=== PATIENT | male | born 1960 | race Caucasian/White ===

== ENCOUNTER 2024-03-18 08:39 | Inpatient (IN) | payer MEDICARE, MEDICAID, SELFPAY ==
[2024-03-18] VITALS (69 sets, daily range): BP systolic 98–147; BP diastolic 17–115; PULSE 63–169; RESP 12–24; TEMP 36.4–37.3; O2SAT 90–100
--- NOTE | 2024-03-18 08:30 | RT.EKG_ITS ---
APPROVED REPORT Exam: Resting ECG Reason for Exam: Dyspnea Patient Location: E HR:68 bpm ECG Measurements Heart Rate 68 AXIS DC 158 P 38 QRSd 148 QRS -48 QT 498 T 29 QTc 531 Conclusion Sinus rhythm...normal P axis, V-rate 60- 99 Right bundle branch block...QRSd>120, terminal axis(90,270)
--- NOTE | 2024-03-18 09:30 | NUR.NOTE ---
Nursing Note: Patient found to have red painful areas to buttocks. Patient's tip of penis was red, painful with a discharge. Patient has numerous red spots on abd and legs
--- NOTE | 2024-03-18 10:23 | ED.GENADUL_ITS ---
Discharge Plan Disposition Patient Disposition: Admit to [facility] Condition: Serious Discharge Details Chief Complaint: GenMedical Clinical Impression: AURELIA (acute kidney injury), Abdominal ascites, Anemia, Hypoxia Primary Care Provider: Darcie Mckeon ED Provider: Ulysses Emery Home Meds and New Rx's Prescriptions: No Action acetaminophen 325 mg capsule 650 mg PO Q8H PRN PRN aspirin [Adult Low Dose Aspirin] 81 mg tablet,delayed release (DR/EC) 81 mg PO DAILY bupropion HCl 150 mg tablet sustained-release 12 hr 150 mg PO DAILY lactulose [Enulose] 10 gram/15 mL solution 10 g PO BID glucagon HCl [Glucagon (HCl) Emergency Kit] 1 mg recon soln 1 mg IM ONCE PRN Rx Instructions: give if glucose under 70 melatonin 3 mg capsule 3 mg PO QHS ondansetron HCl 4 mg tablet 4 mg PO QD-BID PRN propranolol 60 mg capsule,extended release 24 hr 60 mg PO DAILY pantoprazole [Protonix] 40 mg tablet,delayed release (DR/EC) 40 mg PO BID albuterol sulfate [Ventolin HFA] 90 mcg/actuation HFA aerosol inhaler 2 inh inhalation Q4H PRN rifaximin 550 mg tablet 550 mg PO BID rosuvastatin 40 mg tablet 40 mg PO DAILY spironolactone [Aldactone] 50 mg tablet 50 mg PO DAILY torsemide 20 mg tablet 20 mg PO DAILY metformin 500 MG tablet 500 mg PO DAILY enalapril maleate 20 MG tablet 40 mg PO DAILY trazodone 100 MG tablet 100 mg PO DAILY atorvastatin [Lipitor] 20 MG tablet 20 mg PO DAILY lamotrigine [Lamictal] 25 MG tablet 75 mg PO DAILY paroxetine HCl 40 MG tablet 40 mg PO DAILY cyclobenzaprine 10 MG tablet 10 mg PO TID PRNQty: 12 0RF HPI General Mode of arrival: EMS . Date/Time Provider Initiated Documentation: 03/18/24 08:56 . Information obtained by: patient . HPI Narrative: 64-year-old male with multiple medical problems, sent from long-term with concern that he was having shortness of breath. Patient notes he did not request to be sent to the hospital. He does note he has had some shortness of breath this morning. He states he does get short of breath sometimes while sleeping and having a dream. He states shortness of breath improved when he woke up. Patient does note he has been refusing to take his lactulose because of diarrhea. He notes the rehab staff are aggressive with him when he has diarrhea. Patient has no chest pain or shortness of breath at this time. He does note significant abdominal distention and states that he has had paracentesis performed probably about a month ago. He is unsure if he is scheduled for repeat paracentesis. History limited secondary to poor historian. Related Data Home Medications ?Medication ?Instructions ?Recorded ?Confirmed atorvastatin 20 mg tablet (Lipitor) 20 mg PO DAILY 09/09/17 03/18/24 cyclobenzaprine 10 mg tablet 10 mg PO TID PRN #12 tabs 09/09/17 03/18/24 enalapril maleate 20 mg tablet 40 mg PO DAILY 09/09/17 03/18/24 lamotrigine 25 mg tablet (Lamictal) 75 mg PO DAILY 09/09/17 03/18/24 metformin 500 mg tablet 500 mg PO DAILY 09/09/17 03/18/24 paroxetine HCl 40 mg tablet 40 mg PO DAILY 09/09/17 03/18/24 trazodone 100 mg tablet 100 mg PO DAILY 09/09/17 03/18/24 acetaminophen 325 mg capsule 650 mg PO Q8H PRN PRN 03/18/24 03/18/24 albuterol sulfate 90 mcg/actuation 2 inh inhalation Q4H PRN 03/18/24 03/18/24 aerosol inhaler (Ventolin HFA) aspirin 81 mg tablet,delayed 81 mg PO DAILY 03/18/24 03/18/24 release (Adult Low Dose Aspirin) bupropion HCl 150 mg tablet,12 hr 150 mg PO DAILY 03/18/24 03/18/24 sustained-release glucagon HCl 1 mg solution for 1 mg IM ONCE PRN 03/18/24 03/18/24 injection (Glucagon (HCl) Emergency Kit) lactulose 10 gram/15 mL oral 10 g PO BID 03/18/24 03/18/24 solution (Enulose) melatonin 3 mg capsule 3 mg PO QHS 03/18/24 03/18/24 ondansetron HCl 4 mg tablet 4 mg PO QD-BID PRN 03/18/24 03/18/24 pantoprazole 40 mg tablet,delayed 40 mg PO BID 03/18/24 03/18/24 release (Protonix) propranolol 60 mg capsule,24 60 mg PO DAILY 03/18/24 03/18/24 hr,extended release rifaximin 550 mg tablet 550 mg PO BID 03/18/24 03/18/24 rosuvastatin 40 mg tablet 40 mg PO DAILY 03/18/24 03/18/24 spironolactone 50 mg tablet 50 mg PO DAILY 03/18/24 03/18/24 (Aldactone) torsemide 20 mg tablet 20 mg PO DAILY 03/18/24 03/18/24 Previous Rx's ?Medication ?Instructions ?Recorded cyclobenzaprine 10 mg tablet 10 mg PO TID PRN #12 tabs 09/09/17 Allergies Allergy/AdvReac Type Severity Reaction Status Date / Time dust,perfume,smoke Allergy Mild Other (See Uncoded 03/18/24 08:53 Comment) General Stated Complaint: GenMedical ARLYN: 3 Review of Systems All systems reviewed & are unremarkable except as noted in HPI and below Gastrointestinal Gastrointestinal: Reports abdominal pain and Denies vomiting Exam Const General: cooperative [facility] Head: normocephalic and atraumatic Mouth: moist mucous membranes Eyes Conjunctivae: normal conjunctivae Sclera: normal sclerae Resp Auscultation: clear to auscultation bilaterally, no rales, no rhonchi and no wheezes Cardio Rate: regular rate and not tachycardic Rhythm: regular rhythm GI Inspection: distended Palpation: not firm, no guarding, no masses, not rigid and nontender Skin General skin exam: no rashes or lesions noted Neuro General: patient alert, patient awake and tone normal Extrem General: edema Laterality: bilateral (Pitting) Course Vital Signs Vital signs: Vital Signs Temperature 37.0 C 03/18/24 08:39 Pulse 69 03/18/24 08:39 Respiratory Rate 20 03/18/24 08:39 Blood Pressure 113/37 L 03/18/24 08:39 Pulse Oximetry 100 03/18/24 08:39 Temperature 37.0 C 03/18/24 08:53 Temperature Source Oral 03/18/24 08:53 Pulse 69 03/18/24 08:53 Respiratory Rate 22 03/18/24 08:54 Respiratory Effort Labored 03/18/24 08:54 Respiratory Depth Normal 03/18/24 08:54 Respiratory Pattern Normal 03/18/24 08:54 Blood Pressure 113/37 L 03/18/24 08:53 Blood Pressure Position Sitting 03/18/24 08:53 Pulse Oximetry 100 03/18/24 08:53 Oxygen Delivery Method Room Air 03/18/24 08:53 Oxygen Flow Rate 0 03/18/24 08:53 Procedures Paracentesis Time Out Performed: Yes Indication: Ascites Procedure: therapeutic paracentesis Location: LLQ Local Anesthetic: Lidocaine 1% Amount of anesthesia used (mL): 10 Bedside Ultrasound Used: yes, real-time guidance Preparation: sterile prep and drape Amount of Fluid Obtained: 4,500 Fluid: clear and Sent to Lab for Analysis Post Procedure Exam: awake, alert, normal BP and normal HR Patient Tolerated Procedure: well Complications: other (continued peritoneal fluid leak) Medical Decision Making 1030? 64-year-old male with multiple medical problems including history of cirrhosis of the liver, coronary artery disease, Chatman type II, diabetes, here with concern from long-term staff for shortness of breath. Patient does note he had some shortness of breath that is since resolved. He is more concerned about his abdominal distention. Patient does have distended abdomen. Nontender. He is hemodynamically stable and saturating well on room air. When I lying flat his breathing does seem labored and his oxygen saturation decreases to upper 80s. Nasal cannula oxygen was applied. I am concerned for abdominal ascites related to his liver disease and contributing to respiratory issues while lying flat. I did obtain and reviewed outside hospital records from [facility] emergency department visit 01/13/2024. Patient was noted to have decompensated cirrhosis and acute kidney injury. Patient had paracentesis performed at that time. Plan for therapeutic paracentesis. 1118 --initial labs reviewed: Creatinine is significantly elevated at 5.0. In reviewing outside hospital records from [facility], patient did have a creatinine of 3.47 in January with baseline noted to be 2.31. Anion gap acidosis noted. -- Additional labs reviewed: Patient is anemic. Unclear of baseline. Normal platelets and INR. Leukocytosis noted. LFTs elevated as is lipase raising concern for potential pancreatitis. I do not suspect SBP at this time as patient is afebrile and does not have significant abdominal pain. Plan to send peritoneal fluid for fluid analysis and culture. 1345 --paracentesis was performed with ultrasound guidance. 4.5 L of yellow clear fluid removed. While fluid was continuing to flow briskly, I was concerned with drop in patient's blood pressure to systolic around 100 and decision made to not remove additional fluid. Patient did have some continued peritoneal leak post procedure. Sterile dressing applied. Plan for hospitalization given AURELIA, anemia, and potential for significant fluid shift post paracentesis. Patient is now taking oral fluid. 1412 --I spoke with Dr. Gonzalez, on-call general surgeon, alerted him that paracentesis has been performed and that patient did continue to have some peritoneal fluid leak post procedurally. I spoke with the on-call hospitalist, Dr. Perez, discussed ED presentation course, he will admit the patient. Lab Data Lab results reviewed: Yes I reviewed the patient's lab results. Labs: 03/18/24 13:25 Peritoneal Body Fluid Culture - Pending 03/18/24 13:25 Peritoneal Gram Stain - Pending Laboratory Tests Range/Units 03/18/24 03/18/24 03/18/24 09:51 10:30 10:30 WBC (4.4-10.8) 10^3/uL RBC (4.36-5.78) 10^6/uL Hgb (13.5-17.5) g/dL Hct (40.0-50.0) % MCV (80-95) fL MCH (27.0-33.0) pg MCHC (32.0-36.0) % RDW (11.8-14.1) % Plt Count (130-400) 10^3/uL MPV (8.0-11.0) fL Immature Gran % % Neutrophils % % Lymphocytes % % Monocytes % % Eosinophils % % Basophils % % Nucleated RBC % (0.0-0.3) % Absolute Neutrophils (1.2-6.7) 10^3/uL Absolute Lymphocytes (1.2-3.4) 10^3/uL Absolute Monocytes (0.1-0.8) 10^3/uL Absolute Eosinophils (0.0-0.7) 10^3/uL Absolute Basophils (0.0-0.2) 10^3/uL Poikilocytosis Basophilic Stippling Anisocytosis PT Cancelled INR Cancelled Sodium (136-145) mmol/L 139 Potassium (3.5-5.1) mmol/L 5.1 Chloride (98-107) mmol/L 107 Carbon Dioxide (21.0-32.0) mmol/L 15.9 L Anion Gap (3-11) mmol/L 16.1 H BUN (7-18) mg/dL 92 H* Creatinine (0.70-1.30) mg/dL 5.0 H* Est GFR (CKD-EPI 2020) (mL/min/1.73m2) 12.18 Glucose (74-106) mg/dL 75 Calcium (8.5-10.1) mg/dL 8.5 Total Bilirubin (0.2-1.0) mg/dL 1.29 H AST (15-37) U/L 148 H ALT (16-63) U/L 97 H Alkaline Phosphatase (46-116) U/L 204 H Total Protein (6.4-8.2) g/dL 6.0 L Albumin (3.4-5.0) g/dL 2.4 L Lipase Cancelled 244 H Range/Units 03/18/24 11:13 WBC (4.4-10.8) 10^3/uL 14.66 H RBC (4.36-5.78) 10^6/uL 2.51 L Hgb (13.5-17.5) g/dL 7.2 L Hct (40.0-50.0) % 22.1 L MCV (80-95) fL 88 MCH (27.0-33.0) pg 28.7 MCHC (32.0-36.0) % 32.6 RDW (11.8-14.1) % 21.6 H Plt Count (130-400) 10^3/uL 162 MPV (8.0-11.0) fL 10.9 Immature Gran % % 0.6 Neutrophils % % 77.7 Lymphocytes % % 11.8 Monocytes % % 8.2 Eosinophils % % 1.4 Basophils % % 0.3 Nucleated RBC % (0.0-0.3) % 0.0 Absolute Neutrophils (1.2-6.7) 10^3/uL 11.39 H Absolute Lymphocytes (1.2-3.4) 10^3/uL 1.73 Absolute Monocytes (0.1-0.8) 10^3/uL 1.20 H Absolute Eosinophils (0.0-0.7) 10^3/uL 0.21 Absolute Basophils (0.0-0.2) 10^3/uL 0.04 Poikilocytosis 1+ Basophilic Stippling Present Anisocytosis 3+ PT 12.7 H INR 1.3 H Sodium (136-145) mmol/L Potassium (3.5-5.1) mmol/L Chloride (98-107) mmol/L Carbon Dioxide (21.0-32.0) mmol/L Anion Gap (3-11) mmol/L BUN (7-18) mg/dL Creatinine (0.70-1.30) mg/dL Est GFR (CKD-EPI 2020) (mL/min/1.73m2) Glucose (74-106) mg/dL Calcium (8.5-10.1) mg/dL Total Bilirubin (0.2-1.0) mg/dL AST (15-37) U/L ALT (16-63) U/L Alkaline Phosphatase (46-116) U/L Total Protein (6.4-8.2) g/dL Albumin (3.4-5.0) g/dL Lipase Quality:[facility] Health Related Social Needs: No Data to Display PFSH All Active Problems (Updated 03/18/24 @ 14:17 by Ulysses Emery MD) Hypoxia (Acute) Anemia (Chronic) Abdominal ascites (Acute) AURELIA (acute kidney injury) (Acute) Social History Smoking/Tobacco Use Status: Never Smoking risk assessment performed?: Yes Alcohol Intake: former Drug use: Never Substance use type: does not use Do you feel safe in your relationship?: Yes
[2024-03-18 10:56] LABS: ALT 97 U/L (16-63); AST 148 U/L (15-37); Albumin 2.4 g/dL (3.4-5.0); Alkaline Phosphatase 204 U/L (46-116); Anion Gap 16.1 mmol/L (3-11); Bilirubin, Total 1.29 mg/dL (0.2-1.0); CO2 15.9 mmol/L (21.0-32.0); Chloride 107 mmol/L (98-107); Estimated GFR 12.18 (mL/min/1.73m2); Glucose 75 mg/dL (74-106); Lipase 244 U/L (16-77); Potassium 5.1 mmol/L (3.5-5.1); Sodium 139 mmol/L (136-145)
[2024-03-18 10:58] LABS: BUN 92 mg/dL (7-18)
[2024-03-18 11:11] LABS: Calcium 8.5 mg/dL (8.5-10.1)
[2024-03-18 11:21] LABS: Abs Immature Grans 0.09 10^3/uL (0.0-0.06); Absolute Basophil Count 0.04 10^3/uL (0.0-0.2); Absolute Eosinophil Count 0.21 10^3/uL (0.0-0.7); Absolute Lymphocyte Count 1.73 10^3/uL (1.2-3.4); Absolute Neutrophil Count 11.39 10^3/uL (1.2-6.7); Basophils % 0.3 %; Eosinophils % 1.4 %; HCT 22.1 % (40.0-50.0); HGB 7.2 g/dL (13.5-17.5); Immature Grans % 0.6 %; Lymphocytes % 11.8 %; MCH 28.7 pg (27.0-33.0); MCHC 32.6 % (32.0-36.0); MCV 88 fL (80-95); MPV 10.9 fL (8.0-11.0); Monocytes % 8.2 %; Neutrophils % 77.7 %; Platelet Count 162 10^3/uL (130-400); RBC 2.51 10^6/uL (4.36-5.78); RDW 21.6 % (11.8-14.1); RDW-SD 69.9 fL; WBC 14.66 10^3/uL (4.4-10.8)
[2024-03-18 11:31] LABS: INR 1.3 (0.9-1.1); Prothrombin Time 12.7 sec (9.1-11.1)
[2024-03-18 11:41] LABS: Diff Comment RBC Morph Reviewed
[2024-03-18 11:42] LABS: Anisocytosis 3+; Basophilic Stippling Present
[2024-03-18 11:44] LABS: Poikilocytes 1+
--- NOTE | 2024-03-18 12:08 | DI.RAD_ITS ---
Exam(s) XR KNEE RT 4V AP,LAT,CARMEN,PAT EXAM: XR KNEE RT 4V AP,LAT,CARMEN,PAT CLINICAL HISTORY: fall, pain. TECHNIQUE: 2D digital imaging was performed. Three views. COMPARISON: No exams were available for comparison FINDINGS: BONES: No acute fracture is present. No bony destructive lesion is seen. JOINTS: The knee is normally aligned. No joint effusion is seen. SOFT TISSUE: Normal. IMPRESSION: Unremarkable radiographs of the right knee. DATA REPOSITORY: RADIATION DOSE DELIVERED:
--- NOTE | 2024-03-18 14:03 | W.SURGCON ---
Date of service: 03/18/24 Time of Service: 14:04 Assessment and Plan Assessment and plan (1) Abdominal ascites: Status: Acute Assessment and plan: Mr. Duran has quite advanced liver disease, with a MELD score of 24, and a Diony class B. At the current time I agree that spontaneous bacterial peritonitis is unlikely. Although all of the labs for the ascites are not yet resulted, the white blood cell count is only 94, and he does not really have any other classic symptoms of SBP. Regardless, he is kidney injury is quite concerning with regards to his overall prognosis given the severity of his cirrhosis. For now, I think simple dressings over the paracentesis site are his best option. If he continues to drain through sterile bandages, then I would apply a ostomy device to capture the effluent. Certainly, we could perform another paracentesis to try to relieve some of the underlying volume, but until the underlying causes of ascites are better addressed, and I do not think there is much advantage to ongoing paracentesis unless he develops significant symptoms. History of Present Illness History of Present Illness Chief Complaint: Ascites Narrative: Mr. Duran is 64 years old. He was brought to the hospital from the [facility] by EMS for reported shortness of breath. Currently, the patient denies any shortness of breath, although he does a bit to some increasing dyspnea over the past few weeks. His past medical history is significant for cirrhosis. It sounds like nonalcoholic steatohepatitis is probably the source of his cirrhosis. He cannot recall exact details of his liver disease, but says he has been accumulating of ascites over the course of the past year or so. He tells me he is undergone paracentesis 1 other time prior to this. That was at [facility]. He tells me it was in the emergency department. He says he felt a little bit better after the procedure was done. Other significant history includes his noncompliance with lactulose over the past few days because of the diarrhea associated with that. He underwent paracentesis in the emergency department, and about 4-1/2 L of ascites were drained off. He says he feels a little bit better after that. There has been some a drainage of ascites through the access site, but it seems to be improving. Other past medical history includes diabetes and high cholesterol. It sounds like he has had hypertension in the past, but some of his antihypertensives have been discontinued. Review of Systems Constitutional Constitutional: Reports fatigue, Reports lethargy, Reports malaise and Reports weakness Eyes Eyes: Reports system reviewed and no additional complaints, except as documented ENT Ears, Nose, Mouth, and Throat: Reports system reviewed and no additional complaints, except as documented Cardiovascular Cardiovascular: Denies chest pain, Reports leg edema and Reports dyspnea Respiratory Respiratory: Denies chest congestion, Denies cough and Reports dyspnea Gastrointestinal Gastrointestinal: Reports diarrhea (Secondary to lactulose) Musculoskeletal Musculoskeletal: Reports abnormal gait and Reports muscle weakness Integumentary/Breasts Skin/Breast: Reports unusual bruising Neurologic Neurologic: Reports abnormal gait, Reports memory loss and Reports weakness Psychiatric Psychiatric: Reports depression and Reports memory loss Endocrine Endocrine: Reports fatigue PFSH All Active Problems (Updated 03/18/24 @ 14:17 by Ulysses Emery MD) Hypoxia (Acute) Anemia (Chronic) Abdominal ascites (Acute) AURELIA (acute kidney injury) (Acute) Social History Smoking/Tobacco Use Status: Never Smoking risk assessment performed?: Yes Alcohol Intake: former Drug use: Never Substance use type: does not use Do you feel safe in your relationship?: Yes Exam Const General: cooperative and comfortable Orientation: awake and oriented x3 HENMT Head: normal to inspection Eyes Sclera: scleral abnormality (Scleral icterus) bilaterally Neck Neck: normal visual inspection, full ROM and no lymphadenopathy Chest Chest: normal inspection of the chest Resp Effort & Inspection: normal respiratory effort and decreased respiratory effort Cardio Rate: regular rate Rhythm: regular rhythm Heart Sounds: S1 normal and S2 normal GI Inspection: distended Palpation: hernia (Umbilical) and ascites (massive) Skin Other: Mild jaundiced Extrem Right lower extremity: edema; no cyanosis Left lower extremity: edema; no cyanosis Results Last Vital Signs Temp 98.6 F 03/18/24 08:53 Pulse 63 03/18/24 13:31 Resp 16 03/18/24 13:31 BP 129/59 L 03/18/24 13:31 Pulse Ox 100 03/18/24 13:16 Labs 03/18/24 11:13 03/18/24 10:30 Labs: Laboratory Results - last 24 hr 03/18/24 03/18/24 03/18/24 09:51 10:30 10:30 WBC RBC Hgb Hct MCV MCH MCHC RDW Plt Count MPV Immature Gran % Neutrophils % Lymphocytes % Monocytes % Eosinophils % Basophils % Nucleated RBC % Absolute Neutrophils Absolute Lymphocytes Absolute Monocytes Absolute Eosinophils Absolute Basophils Poikilocytosis Basophilic Stippling Anisocytosis PT Cancelled INR Cancelled Sodium 139 Potassium 5.1 Chloride 107 Carbon Dioxide 15.9 L Anion Gap 16.1 H BUN 92 H* Creatinine 5.0 H* Est GFR (CKD-EPI 2020) 12.18 Glucose 75 Calcium 8.5 Total Bilirubin 1.29 H AST 148 H ALT 97 H Alkaline Phosphatase 204 H Total Protein 6.0 L Albumin 2.4 L Lipase Cancelled 244 H 03/18/24 11:13 WBC 14.66 H RBC 2.51 L Hgb 7.2 L Hct 22.1 L MCV 88 MCH 28.7 MCHC 32.6 RDW 21.6 H Plt Count 162 MPV 10.9 Immature Gran % 0.6 Neutrophils % 77.7 Lymphocytes % 11.8 Monocytes % 8.2 Eosinophils % 1.4 Basophils % 0.3 Nucleated RBC % 0.0 Absolute Neutrophils 11.39 H Absolute Lymphocytes 1.73 Absolute Monocytes 1.20 H Absolute Eosinophils 0.21 Absolute Basophils 0.04 Poikilocytosis 1+ Basophilic Stippling Present Anisocytosis 3+ PT 12.7 H INR 1.3 H Sodium Potassium Chloride Carbon Dioxide Anion Gap BUN Creatinine Est GFR (CKD-EPI 2020) Glucose Calcium Total Bilirubin AST ALT Alkaline Phosphatase Total Protein Albumin Lipase
[2024-03-18 14:08] LABS: Clarity Clear; Source Peritoneal
--- NOTE | 2024-03-18 14:19 | W.PM.HP.N ---
Date of service: 03/18/24 Time of Service: 14:19 Assessment and Plan Assessment and plan (1) Transaminitis: Status: Acute Assessment and plan: has MERCHANT cirrhosis of the liver - ongoing Will continue to monitor CMP in AM (2) Hyperlipidemia: Status: Acute Assessment and plan: On adjusted dose of Crestor (3) Essential hypertension: Status: Acute Assessment and plan: Holding propanolol in the setting SBP 92-100 in the setting of liver cirrhosis with ascites Could be resumed when SBP >= 100 sustained (4) Cirrhosis of liver: Status: Acute Assessment and plan: MERCHANT- ongoing Ascites- negative for SBP as per gram stain Paracentesis for 4 l completed in the ED with application of drainage pouch Surgical consult ongoing for further needs for paracentesis (5) Depressive disorder: Status: Chronic Assessment and plan: Continue Bupropion (6) (HFpEF) heart failure with preserved ejection fraction: Status: Acute (7) DM II (diabetes mellitus, type II), controlled: Status: Acute (8) Hypoxia: Status: Acute (9) Anemia: Status: Chronic (10) Abdominal ascites: Status: Acute (11) AURELIA (acute kidney injury): Status: Acute Assessment and plan: AURELIA on CKD Cr 5.0 with BUN 92 Slow IV hydration w LR at 50cc/hr d/t risk of increased ascites CMP in AM (12) CAD (coronary artery disease): Status: Chronic Assessment and plan: History of NSTEMI On ASA and statin Discussed with Dr. Perez History of Present Illness History of Present Illness Chief Complaint: Shortness of breath Narrative: This 64-year-old male patient with extensive past medical history significant for heart failure with preserved ejection fraction, hypertension, hyperlipidemia, seizures, CKD, depression, diabetes type 2, liver cirrhosis from MERCHANT presented to the ED at [facility] from his assisted living facility for evaluation of shortness of breath. Patient stating getting short of breath at times during sleep while dreaming with improvement when he wakes up. Patient mentioned refusing to take lactulose due to diarrhea as we staff seems to be aggressive with him when he has diarrhea. In the ED the patient denied shortness of breath chest pain. In the prior notes mention significant abdominal distention and patient pointing to last paracentesis performed about a month ago. The patient was unable to provide a clear history to the ED provider. Workup in the ED was significant for WBC at 14.66 H&H at 7.2 and 22.1, BUN was 92 with a creatinine of 5.0, potassium 5.1, anion gap of 16.1 mild transaminitis with total bilirubin of 1.9. Lipase was 244 without symptoms of overt pancreatitis. The ED provider completed a paracentesis for total of 4 L of clear yellow fluid. Surgical consult was also completed with Dr. Cameron Gonzalez. Patient abdomen was still leaking small amount of fluids but no further fluid collection at this time due to systolic blood pressure falling around 100 mmHg. But the hospitalist was consulted and patient admitted for evaluation and management of chronic anemia, cirrhosis with ascites, AURELIA on CKD, leukocytosis . When seen, patient reported dizziness and improved shortness of breath. The patient denied recent change in vision, headache, chest pain, nausea, vomiting, hematochezia or melena, and dysuria. Reporting diarrhea due to his intake of lactulose. Patient mention having been diagnosed with esophageal ulcers by surgical team from another facility and is currently on PPI. Patient confirmed CODE STATUS as a DNR/DNI. Review of Systems All systems reviewed & are unremarkable except as noted in HPI and below PFSH All Active Problems (Updated 03/18/24 @ 17:53 by Trinh Copeland APRN) CAD (coronary artery disease) (Chronic) Transaminitis (Acute) Hyperlipidemia (Acute) Essential hypertension (Acute) Cirrhosis of liver (Acute) Depressive disorder (Chronic) (HFpEF) heart failure with preserved ejection fraction (Acute) DM II (diabetes mellitus, type II), controlled (Acute) Hypoxia (Acute) Anemia (Chronic) Abdominal ascites (Acute) AURELIA (acute kidney injury) (Acute) Social History Smoking/Tobacco Use Status: Never Smoking risk assessment performed?: Yes Alcohol Intake: former Drug use: Never Substance use type: does not use Housing: assisted living facility Do you feel safe in your relationship?: Yes Meds Allergies and Home Medications Allergies Allergy/AdvReac Type Severity Reaction Status Date / Time dust,perfume,smoke Allergy Mild Other (See Uncoded 03/18/24 08:53 Comment) Home Medications ?Medication ?Instructions ?Recorded ?Confirmed ?Type atorvastatin 20 mg tablet (Lipitor) 20 mg PO DAILY 09/09/17 03/18/24 History cyclobenzaprine 10 mg tablet 10 mg PO TID PRN #12 tabs 09/09/17 03/18/24 Rx enalapril maleate 20 mg tablet 40 mg PO DAILY 09/09/17 03/18/24 History lamotrigine 25 mg tablet (Lamictal) 75 mg PO DAILY 09/09/17 03/18/24 History metformin 500 mg tablet 500 mg PO DAILY 09/09/17 03/18/24 History paroxetine HCl 40 mg tablet 40 mg PO DAILY 09/09/17 03/18/24 History trazodone 100 mg tablet 100 mg PO DAILY 09/09/17 03/18/24 History acetaminophen 325 mg capsule 650 mg PO Q8H PRN PRN 03/18/24 03/18/24 History albuterol sulfate 90 mcg/actuation 2 inh inhalation Q4H PRN 03/18/24 03/18/24 History aerosol inhaler (Ventolin HFA) aspirin 81 mg tablet,delayed 81 mg PO DAILY 03/18/24 03/18/24 History release (Adult Low Dose Aspirin) bupropion HCl 150 mg tablet,12 hr 150 mg PO DAILY 03/18/24 03/18/24 History sustained-release glucagon HCl 1 mg solution for 1 mg IM ONCE PRN 03/18/24 03/18/24 History injection (Glucagon (HCl) Emergency Kit) lactulose 10 gram/15 mL oral 10 g PO BID 03/18/24 03/18/24 History solution (Enulose) melatonin 3 mg capsule 3 mg PO QHS 03/18/24 03/18/24 History ondansetron HCl 4 mg tablet 4 mg PO QD-BID PRN 03/18/24 03/18/24 History pantoprazole 40 mg tablet,delayed 40 mg PO BID 03/18/24 03/18/24 History release (Protonix) propranolol 60 mg capsule,24 60 mg PO DAILY 03/18/24 03/18/24 History hr,extended release rifaximin 550 mg tablet 550 mg PO BID 03/18/24 03/18/24 History rosuvastatin 40 mg tablet 40 mg PO DAILY 03/18/24 03/18/24 History spironolactone 50 mg tablet 50 mg PO DAILY 03/18/24 03/18/24 History (Aldactone) torsemide 20 mg tablet 20 mg PO DAILY 03/18/24 03/18/24 History Exam Narrative Exam Narrative: Constitutional The patient is lying in bed comfortable without acute distress, improved SOB HENMT: Head is atraumatic, normocephalic, no lymphadenopathy. Facial structures with normal appearance Eyes: Well aligned Neck: No JVD Neuro:alert and oriented to self, person, plac, time and situation. No neurological focal deficit Chest:Chest is symmetrical and normal appearance Resp: Normal respiratory pattern, speaks in full sentences, unlabored breathing, clear lung bilaterally Cardio: regular rhythm, S1, S2, no murmur, capillary refill<3 sec., bilateral radial and dorsalis pedis pulses are positive, palpable GI: Abdomen large rounded , soft and non tender, bowel sounds are present, ostomy appliance to paracentesis site - minimal fluid collection Integumentary: No skin lesions or rash on exposed skin Extremities: strength 5/5 to bilateral lower and upper extremities Psych: RASS 0, congruent mood and normal affect. Results Labs 03/18/24 11:13 03/18/24 10:30 Labs: Laboratory Results - last 24 hr 03/18/24 03/18/24 03/18/24 09:51 10:30 10:30 WBC RBC Hgb Hct MCV MCH MCHC RDW Plt Count MPV Immature Gran % Neutrophils % Lymphocytes % Monocytes % Eosinophils % Basophils % Nucleated RBC % Absolute Neutrophils Absolute Lymphocytes Absolute Monocytes Absolute Eosinophils Absolute Basophils Poikilocytosis Basophilic Stippling Anisocytosis PT Cancelled INR Cancelled Sodium 139 Potassium 5.1 Chloride 107 Carbon Dioxide 15.9 L Anion Gap 16.1 H BUN 92 H* Creatinine 5.0 H* Est GFR (CKD-EPI 2020) 12.18 Glucose 75 Calcium 8.5 Total Bilirubin 1.29 H AST 148 H ALT 97 H Alkaline Phosphatase 204 H Total Protein 6.0 L Albumin 2.4 L Lipase Cancelled 244 H 03/18/24 11:13 WBC 14.66 H RBC 2.51 L Hgb 7.2 L Hct 22.1 L MCV 88 MCH 28.7 MCHC 32.6 RDW 21.6 H Plt Count 162 MPV 10.9 Immature Gran % 0.6 Neutrophils % 77.7 Lymphocytes % 11.8 Monocytes % 8.2 Eosinophils % 1.4 Basophils % 0.3 Nucleated RBC % 0.0 Absolute Neutrophils 11.39 H Absolute Lymphocytes 1.73 Absolute Monocytes 1.20 H Absolute Eosinophils 0.21 Absolute Basophils 0.04 Poikilocytosis 1+ Basophilic Stippling Present Anisocytosis 3+ PT 12.7 H INR 1.3 H Sodium Potassium Chloride Carbon Dioxide Anion Gap BUN Creatinine Est GFR (CKD-EPI 2020) Glucose Calcium Total Bilirubin AST ALT Alkaline Phosphatase Total Protein Albumin Lipase Last Vital Signs Temp 37.0 C 03/18/24 08:53 Pulse 63 03/18/24 13:31 Resp 16 03/18/24 13:31 BP 129/59 L 03/18/24 13:31 Pulse Ox 100 03/18/24 13:16 Time Spent Time spent with Patient: >75 minutes Time was spent: preparing to see the patient(eg.review tests), obtaining and/or reviewing separately otained hiistory, ordering medications,tests, procedures, referring, communicating with other health pet care technician, indepentently interpreting results, counseling the patient and care coordination
[2024-03-18 14:39] LABS: Nucleated Cells 94 uL (0)
[2024-03-18 14:51] LABS: Mononuclear Cells 62 %; Polynuclear Cells 38 %
[2024-03-18 15:11] LABS: Ammonia < 10 umol/L (11-32)
--- NOTE | 2024-03-18 15:25 | PDOC.CMIN ---
Date of service: 03/18/24 Time of Service: 15:25 Care Management Initial Assmt Initial Assessment Reason for Hospitalization: AURELIA. SOB Functional Status/Living Situation Town of Residence: [place], [place] Resides with: Other (SNF) Employment Status: Unemployed Medications Medication Management: No Issues/Barriers identified Advance Directives Advance Directives: Do you have an Advance Directive: N 03/11/24 14:00 AD On File at [facility]: N 03/11/24 14:00 Date Asked 03/11/24 03/11/24 15:31 AD Date Reviewed COLST On File at [facility] No 03/11/24 14:00 COLST Date Scanned Code Status Resuscitation Status Full Code Portal Pt does not currently have a portal and education provided: No Insurance Coverage/Financial Issues Insurance: Medicaid Care Team Visit Care Team Role Provider Type Darcie Mckeon Primary Care Provider NON-[facility] STAFF PHYSICIAN InPatient Dale Johns Other Providers OTHER Ulysses Emery MD Emergency Provider [facility] STAFF PHYSICIAN Discharge Potential Discharge Needs: Other (return to SNF) Anticipated Barriers to Discharge: Medical Status Patient/Family Education Needs: Review discharge instructions, discuss Ask Me Three Transportation: Facility Transport Plan: Anticipate Hair will return to when medically cleared. He will follow up with the facility providers and plan of care and transport via [facility]. CM will follow and continue to asssess for discharge needs. PFSH All Active Problems (Updated 03/18/24 @ 14:17 by Ulysses Emery MD) Hypoxia (Acute) Anemia (Chronic) Abdominal ascites (Acute) AURELIA (acute kidney injury) (Acute) Social History Smoking/Tobacco Use Status: Never Smoking risk assessment performed?: Yes Alcohol Intake: former Drug use: Never Substance use type: does not use Do you feel safe in your relationship?: Yes
--- NOTE | 2024-03-18 16:15 | W.PC.ACHO ---
Registration Status: Primary Language: Preferred Language: ED Information & Data Chief Complaint GenMedical 03/18/24 10:33 Triage Note Patient denies any 03/18/24 08:39 complaints. H/R staff wanted patient evaluated. Patient stated that he was having a dream which caused he to feel SOB. Once staff woke him, SOB resolved. Patient reported to EMS and myself that staff is giving patient a hard time about the diarrhea he gets after taking his lactulose. Patient is upset with the staff. He has refused to take the lactulose for 3 days Most Recent Vital Signs Temperature 37.3 C 03/18/24 16:08 Temperature Source Temporal Artery Scan 03/18/24 16:08 Pulse 70 03/18/24 16:08 Pulse 81 03/18/24 15:20 Respiratory Rate 22 03/18/24 16:08 Respiratory Effort Labored 03/18/24 08:54 Respiratory Depth Normal 03/18/24 08:54 Respiratory Pattern Normal 03/18/24 08:54 Blood Pressure 98/67 L 03/18/24 16:08 Blood Pressure Mean 81 03/18/24 15:00 Blood Pressure Position Sitting 03/18/24 08:53 Pulse Oximetry 100 03/18/24 16:08 Oxygen Delivery Method Nasal Cannula 03/18/24 16:08 Oxygen Flow Rate 2 03/18/24 16:08 Pain Level 0 03/18/24 16:08 Allergies dust,perfume,smoke Allergy (Mild, Uncoded 03/18/24 08:53) Other (See Comment) runny nose, itchy eyes Precautions Isolation Standard precaution 03/18/24 08:53 IV IV Catheter Type [Right Upper Saline Lock arm] IV Catheter Type [Right Peripheral IV Antecubital] IV Catheter Gauge [Right Upper 18 arm] IV Catheter Gauge [Right 18 Antecubital] Diet Orders Category Date Time Status Heart Healthy Eating [DIET] Nutrition 03/18/24 Dinner Active Diagnostics 03/18/24 03/18/24 03/18/24 Range/Units 14:45 13:25 13:25 WBC (4.4-10.8) 10^3/uL RBC (4.36-5.78) 10^6/uL Hgb (13.5-17.5) g/dL Hct (40.0-50.0) % MCV (80-95) fL MCH (27.0-33.0) pg MCHC (32.0-36.0) % RDW (11.8-14.1) % Plt Count (130-400) 10^3/uL MPV (8.0-11.0) fL Immature Gran % % Neutrophils % % Lymphocytes % % Monocytes % % Eosinophils % % Basophils % % Nucleated RBC % (0.0-0.3) % Absolute Neutrophils (1.2-6.7) 10^3/uL Absolute Lymphocytes (1.2-3.4) 10^3/uL Absolute Monocytes (0.1-0.8) 10^3/uL Absolute Eosinophils (0.0-0.7) 10^3/uL Absolute Basophils (0.0-0.2) 10^3/uL Poikilocytosis Basophilic Stippling Anisocytosis PT INR Sodium (136-145) mmol/L Potassium (3.5-5.1) mmol/L Chloride (98-107) mmol/L Carbon Dioxide (21.0-32.0) mmol/L Anion Gap (3-11) mmol/L BUN (7-18) mg/dL Creatinine (0.70-1.30) mg/dL Est GFR (CKD-EPI 2020) (mL/min/1.73m2) Glucose (74-106) mg/dL Calcium (8.5-10.1) mg/dL Total Bilirubin (0.2-1.0) mg/dL AST (15-37) U/L ALT (16-63) U/L Alkaline Phosphatase (46-116) U/L Ammonia < 10 L (11-32) umol/L Total Protein (6.4-8.2) g/dL Albumin (3.4-5.0) g/dL Lipase Fluid Type Pending Pending Fluid Source Peritoneal Fluid Color Yellow Fluid Clarity Clear Fluid WBC 94 (0) uL Fld Polynuclear WBCs % 38 % Fluid Mononuclear Cell 62 % Fluid Glucose Pending Fluid Total Protein Pending Fluid Albumin Pending Fluid LDH Pending Fluid Amylase Pending Path Cons Comment Pending 03/18/24 03/18/24 03/18/24 Range/Units 11:13 10:30 10:30 WBC 14.66 H (4.4-10.8) 10^3/uL RBC 2.51 L (4.36-5.78) 10^6/uL Hgb 7.2 L (13.5-17.5) g/dL Hct 22.1 L (40.0-50.0) % MCV 88 (80-95) fL MCH 28.7 (27.0-33.0) pg MCHC 32.6 (32.0-36.0) % RDW 21.6 H (11.8-14.1) % Plt Count 162 (130-400) 10^3/uL MPV 10.9 (8.0-11.0) fL Immature Gran % 0.6 % Neutrophils % 77.7 % Lymphocytes % 11.8 % Monocytes % 8.2 % Eosinophils % 1.4 % Basophils % 0.3 % Nucleated RBC % 0.0 (0.0-0.3) % Absolute Neutrophils 11.39 H (1.2-6.7) 10^3/uL Absolute Lymphocytes 1.73 (1.2-3.4) 10^3/uL Absolute Monocytes 1.20 H (0.1-0.8) 10^3/uL Absolute Eosinophils 0.21 (0.0-0.7) 10^3/uL Absolute Basophils 0.04 (0.0-0.2) 10^3/uL Poikilocytosis 1+ Basophilic Stippling Present Anisocytosis 3+ PT 12.7 H INR 1.3 H Sodium 139 (136-145) mmol/L Potassium 5.1 (3.5-5.1) mmol/L Chloride 107 (98-107) mmol/L Carbon Dioxide 15.9 L (21.0-32.0) mmol/L Anion Gap 16.1 H (3-11) mmol/L BUN 92 H* (7-18) mg/dL Creatinine 5.0 H* (0.70-1.30) mg/dL Est GFR (CKD-EPI 2020) 12.18 (mL/min/1.73m2) Glucose 75 (74-106) mg/dL Calcium 8.5 (8.5-10.1) mg/dL Total Bilirubin 1.29 H (0.2-1.0) mg/dL AST 148 H (15-37) U/L ALT 97 H (16-63) U/L Alkaline Phosphatase 204 H (46-116) U/L Ammonia (11-32) umol/L Total Protein 6.0 L (6.4-8.2) g/dL Albumin 2.4 L (3.4-5.0) g/dL Lipase 244 H Cancelled Fluid Type Fluid Source Fluid Color Fluid Clarity Fluid WBC (0) uL Fld Polynuclear WBCs % % Fluid Mononuclear Cell % Fluid Glucose Fluid Total Protein Fluid Albumin Fluid LDH Fluid Amylase Path Cons Comment 03/18/24 Range/Units 09:51 WBC (4.4-10.8) 10^3/uL RBC (4.36-5.78) 10^6/uL Hgb (13.5-17.5) g/dL Hct (40.0-50.0) % MCV (80-95) fL MCH (27.0-33.0) pg MCHC (32.0-36.0) % RDW (11.8-14.1) % Plt Count (130-400) 10^3/uL MPV (8.0-11.0) fL Immature Gran % % Neutrophils % % Lymphocytes % % Monocytes % % Eosinophils % % Basophils % % Nucleated RBC % (0.0-0.3) % Absolute Neutrophils (1.2-6.7) 10^3/uL Absolute Lymphocytes (1.2-3.4) 10^3/uL Absolute Monocytes (0.1-0.8) 10^3/uL Absolute Eosinophils (0.0-0.7) 10^3/uL Absolute Basophils (0.0-0.2) 10^3/uL Poikilocytosis Basophilic Stippling Anisocytosis PT Cancelled INR Cancelled Sodium (136-145) mmol/L Potassium (3.5-5.1) mmol/L Chloride (98-107) mmol/L Carbon Dioxide (21.0-32.0) mmol/L Anion Gap (3-11) mmol/L BUN (7-18) mg/dL Creatinine (0.70-1.30) mg/dL Est GFR (CKD-EPI 2020) (mL/min/1.73m2) Glucose (74-106) mg/dL Calcium (8.5-10.1) mg/dL Total Bilirubin (0.2-1.0) mg/dL AST (15-37) U/L ALT (16-63) U/L Alkaline Phosphatase (46-116) U/L Ammonia (11-32) umol/L Total Protein (6.4-8.2) g/dL Albumin (3.4-5.0) g/dL Lipase Fluid Type Fluid Source Fluid Color Fluid Clarity Fluid WBC (0) uL Fld Polynuclear WBCs % % Fluid Mononuclear Cell % Fluid Glucose Fluid Total Protein Fluid Albumin Fluid LDH Fluid Amylase Path Cons Comment 03/18/24 13:25 Body Fluid Culture - Pending Peritoneal Gram Stain - Final Intake and Output - 24 Hour Total 03/18/24 08:29 thru 03/18/24 08:39 Weight 97.5 kg Falls Risk Assessment History of Falls Previous History 03/18/24 11:05 Contributing Factors No Factors 03/18/24 11:05 Ambulatory Aids Uses ambulatory device 03/18/24 11:05 Tubes/Lines None 03/18/24 11:05 Gait Evaluation W/no contributing factors 03/18/24 11:05 Cognition No cognitive impairment 03/18/24 11:05 Fall Total Score 40 03/18/24 11:05 Level of Risk Moderate Risk 03/18/24 11:05 Problems (Last Reviewed 03/18/24 @ 10:29 by Ulysses Emery MD) Abdominal ascites (Acute) Notes 03/18/24 09:30 Nursing Notes by Indira Shepherd Nursing Note: Patient found to have red painful areas to buttocks. Patient's tip of penis was red, painful with a discharge. Patient has numerous red spots on abd and legs Initialized on 03/18/24 09:30 - END OF NOTE v v v v v v v v v Sending and/or Receiving Nurses: Please use comment section below to note any information pertinent to the patient hand-off not included above. Information / Comments: Report received from:handoff from indira shepherd ED RN.
[2024-03-18 17:29] LABS: Hemoglobin A1C 5.7 % (<5.7)
[2024-03-18] MEDS: Enoxaparin 30 MG/0.3 ML SYR SC (18:53)
[2024-03-18] MEDS: Pantoprazole 40 MG TABCR PO (19:55)
[2024-03-18] MEDS: Rifaximin 550 MG TAB PO (19:55)
[2024-03-18] MEDS: Melatonin 3 MG TAB PO (19:56)
[2024-03-18] MEDS: Lactulose 20 GM/30 ML CUP 10 GM PO (19:56)
[2024-03-18] MEDS: Normal Saline Flush 10 ML SYR IVP (20:59)
[2024-03-18 22:07] LABS: Albumin, Body FLuid <1.0 g/dL (See Note)
[2024-03-18 22:08] LABS: Glucose, Fluid 76 mg/dL (See Note)
[2024-03-19] VITALS (12 sets, daily range): BP systolic 101–138; BP diastolic 52–98; PULSE 67–72; RESP 14–20; TEMP 36.3–37.4; O2SAT 99–100
[2024-03-19 06:37] LABS: Abs Immature Grans 0.06 10^3/uL (0.0-0.06); Absolute Basophil Count 0.02 10^3/uL (0.0-0.2); Basophils % 0.2 %; Eosinophils % 1.2 %; Immature Grans % 0.5 %; Lymphocytes % 15.9 %; MCH 28.7 pg (27.0-33.0); MCHC 33.5 % (32.0-36.0); MCV 86 fL (80-95); MPV 11.1 fL (8.0-11.0); Monocytes % 9.9 %; Neutrophils % 72.3 %; Platelet Count 135 10^3/uL (130-400); RBC 2.37 10^6/uL (4.36-5.78); RDW 21.5 % (11.8-14.1); RDW-SD 66.5 fL; WBC 12.11 10^3/uL (4.4-10.8)
[2024-03-19 06:45] LABS: Absolute Eosinophil Count 0.15 10^3/uL (0.0-0.7); Absolute Lymphocyte Count 1.93 10^3/uL (1.2-3.4); Absolute Neutrophil Count 8.76 10^3/uL (1.2-6.7)
[2024-03-19 06:47] LABS: HCT 20.3 % (40.0-50.0); HGB 6.8 g/dL (13.5-17.5)
[2024-03-19 06:49] LABS: ALT 97 U/L (16-63); AST 177 U/L (15-37); Albumin 2.3 g/dL (3.4-5.0); Alkaline Phosphatase 212 U/L (46-116); Bilirubin, Total 1.41 mg/dL (0.2-1.0); Calcium 8.5 mg/dL (8.5-10.1); Chloride 106 mmol/L (98-107); Glucose 77 mg/dL (74-106); Magnesium 1.7 mg/dL (1.8-2.4); Potassium 4.8 mmol/L (3.5-5.1); Sodium 137 mmol/L (136-145); Total Protein 5.7 g/dL (6.4-8.2)
[2024-03-19 06:52] LABS: BUN 95 mg/dL (7-18); CREATININE 5.1 mg/dL (0.70-1.30)
[2024-03-19 07:17] LABS: Anisocytosis 2+; Diff Comment RBC Morph Reviewed
[2024-03-19] MEDS: Lactulose 20 GM/30 ML CUP 10 GM PO ×2 (08:04→20:19)
[2024-03-19] MEDS: PARoxetine 20 MG TAB 40 MG PO (08:05)
[2024-03-19] MEDS: Rifaximin 550 MG TAB PO ×2 (08:05→20:18)
[2024-03-19] MEDS: buPROPion-CR 150 MG TABCR PO (08:05)
[2024-03-19] MEDS: Pantoprazole 40 MG TABCR PO ×2 (08:05→20:18)
[2024-03-19] MEDS: Rosuvastatin 10 MG TAB PO (08:05)
--- NOTE | 2024-03-19 08:43 | PDOC.CMIN ---
Date of service: 03/19/24 Time of Service: 08:44 Care Management Initial Assmt Initial Assessment Reason for Hospitalization: Cirrhosis of liver, Abdominal ascites Functional Status/Living Situation Patient Presentation: Hair was awake and sitting up in bed when CM met with him. He is pleasant and easily engages in conversation. Per pt, everyone keeps telling him he will get better, and he knows he wont because his condition is terminal. Palliative consult is ordered to discuss goals of care and Hospice. Per Hair, he lives alone and owns a home in [place] and has been at [facility] for a few weeks when his [id number] Federico gained control of his medical decisions. His cousin Marquita Lan is on his HIPAA, Federico is not. CM will clarify. Hair verbalized to CM that staff are more attentive to him in the hospital. Town of Residence: [facility], Lives in [place] (owns his own home). Resides with: Alone Significant Other/Family: Local (Cousin Marquita Lan lives in [place] [phone].) Caregiver/Guardian: [facility] Employment Status: Disabled Instrumental Activities of Daily Living (ADLs): Requires support Medications Medication Management: No Issues/Barriers identified Physical Functioning/Mobility Assistive Device: Walker Advance Directives Advance Directives: Do you have an Advance Directive: N 03/11/24 14:00 AD On File at [facility]: N 03/11/24 14:00 Date Asked 03/11/24 03/11/24 15:31 AD Date Reviewed COLST On File at [facility] No 03/11/24 14:00 COLST Date Scanned Code Status Resuscitation Status Full Code Portal Pt does not currently have a portal and education provided: Yes Insurance Coverage/Financial Issues Insurance: Medicaid Care Team Visit Care Team Role Provider Type Darcie Mckeon Primary Care Provider NON-[facility] STAFF PHYSICIAN Adri Flores RDN, CDCES Other Providers PHP M[employer] WEB DEVELOPER Cassi Riley Other Providers PHP M[employer] WEB DEVELOPER Hui Johns Other Providers OTHER Khadar Cruz RDN Other Providers PHP MYSQL WEB DEVELOPER Cameron Gonzalez MD Other Providers [facility] STAFF PHYSICIAN Ulysses Emery MD Emergency Provider [facility] STAFF PHYSICIAN Shoaib Perez MD Admit Provider [facility] STAFF PHYSICIAN Attending Provider Discharge Potential Discharge Needs: PCP F/U Appt and Surgical F/U Appt Anticipated Barriers to Discharge: Medical Status Patient/Family Education Needs: Review discharge instructions, discuss Ask Me Three Transportation: Facility Transport (facility w/c van) Plan: PT recommends: SNF versus LTC based on ability to participate and progress. Very sick, Prognosis is unclear, requires additional medical work up per MD. Palliative consult ordered to discuss goals of care, wants Hospice. From [facility] and is reluctant to return to [facility]. Discharge plan to follow. CM will follow. PFSH All Active Problems (Updated 03/18/24 @ 17:53 by Trinh Copeland APRN) CAD (coronary artery disease) (Chronic) Transaminitis (Acute) Hyperlipidemia (Acute) Essential hypertension (Acute) Cirrhosis of liver (Acute) Depressive disorder (Chronic) (HFpEF) heart failure with preserved ejection fraction (Acute) DM II (diabetes mellitus, type II), controlled (Acute) Hypoxia (Acute) Anemia (Chronic) Abdominal ascites (Acute) AURELIA (acute kidney injury) (Acute) Social History Smoking/Tobacco Use Status: Never Smoking risk assessment performed?: Yes Alcohol Intake: former Drug use: Never Substance use type: does not use Housing: assisted living facility Do you feel safe in your relationship?: Yes SDOH(Care Management) Screening Will the Patient Participate in the Screening?: Declined to provide
[2024-03-19] MEDS: Normal Saline Flush 10 ML SYR IVP ×2 (09:35→20:00)
--- NOTE | 2024-03-19 09:59 | NUR.NOTE ---
Accessed Pt chart to where the patient is for his guardian.
--- NOTE | 2024-03-19 10:58 | PT.INIE ---
PT Notes Visit Reasons: AURELIA on CKD, ascites, liver cirrhosis, SOB, hypoxia Inpatient Physical Therapy Evaluation Date: [03/23/2024] Referring Doctor: [Trinh Copeland] PT Orders: PT CONSULT: [evaluate for mobility] Precautions: [fall risk, standard] Patient Profile/Admitting Diagnosis: []Hair is a 64-year-old male patient with extensive past medical history significant for heart failure with preserved ejection fraction, hypertension, hyperlipidemia, seizures, CKD, depression, diabetes type 2, liver cirrhosis from [facility] presented to the ED at [facility] from his assisted living facility 03/18/24 for evaluation of shortness of breath. PMHX: []All Active Problems (Updated 03/18/24 @ 17:53 by Trinh Copeland, [employer]) CAD (coronary artery disease) (Chronic) Transaminitis (Acute) Hyperlipidemia (Acute) Essential hypertension (Acute) Cirrhosis of liver (Acute) Depressive disorder (Chronic) (HFpEF) heart failure with preserved ejection fraction (Acute) DM II (diabetes mellitus, type II), controlled (Acute) Hypoxia (Acute) Anemia (Chronic) Abdominal ascites (Acute) AURELIA (acute kidney injury) (Acute) Social History/Home Situation: []Resident at Assisted Living Facility or Rehab?, states he is from [facility]. Current Functional Limitations: []Pt reports at baseline he has declined significnatly over the past week. He states that he essentially uses a walker to assist with transfers to chair and mobility around in w/c. He states he has much more unsteadiness and concern of falling. Equipment Owned/DME: RW/w/c Subjective: [I feel too unsteady to get back up and into the chair, I just got back into bed and tired after that] Report from Nursing staff is that he required 2 person assist to transfer bed to chair and he was unsteady with increased tremors. There was no RW in treatment room however based on strength assessment he may be better able to assist with transfers using RW. He also states he was ambulating with RW with PT while at ?rehab just 1 week ago. He states at baseline he has someone nearby because he has fallen and 'they' do not want him to get up without anyone around. Objective: [] General Observation: []Pt is in bed with IV in right UE. Observable pitting edema both LE as well as ascites. Mental Status: Alert and Oriented x3, nursing states he just got back into bed and may not want to get up as blood work still unstable. He states that he does not have energy to get up again. He states he doesn't want to work hard if he only has 6 mo, 6 days or 6 hours left Pain: bilateral knees after fall ? a couple of weeks ago, resolving bruising noted, with small scrape on the right Vital Signs: monitored by nursing staff ROM: Right Upper Extremity: WFL Left Upper Extremity: WFL Right Lower Extremity: Knee 10-100 DF 0 hip WFL Left Lower Extremity: Knee 20?100 DF 0 hip WFL Strength: Performed at edge of bed Right Upper Extremity: WFL Left Upper Extremity: WFL Right Lower Extremity: WFL unable to test plantarflexion Left Lower Extremity: WFL unable to test plantarflexion Sensation: Reports normal sensation, pitting edema both LE Bed Mobility/Transfers: [] Only able to assess bed mobility reported from nursing staff assist of 2 for steadiness for transfer to chair and back to bed he had just completed this prior to physical therapy. He reports that just 1 week ago he was ambulating with physical therapy short distance with RW but mostly using RW to transfer from bed to chair. He states that he has been declining and does not feel safe with ambulation and today does not have enough strength to perform standing or transfer or ambulation assessment. He is able to go supine to sit independently utilizing bed rail, and min assist to adjust bedding he moves slowly with adjusting to get to edge of bed but is able to do with assist of the railing. From sit to supine he is also better able to do utilizing bed rail and adjusting position in bed with min assist for bed. Gait: Unable to assess, patient reports 1 week ago utilizing RW with physical therapy Balance: Static Sitting: Good Dynamic Sitting: Fair Static Standing: NT Dynamic Standing: NT Special Tests: Mobility Limitations Standardized Measure [facility] AM-PAC 6 clicks Basic Mobility Inpatient Short Form: Raw Score: 11 standardized Score: 33.8 CMS Score: 72.57 Informed Consent/Education: Patient instructed in purpose of PT consult and plan of care. Assessment: Patient is a 64year old male referred to physical therapy services with the diagnosis of heart failure with preserved ejecton fraction. He has extensive past medical history significant for heart failure with preserved ejection fraction, hypertension, hyperlipidemia, seizures, CKD, depression, diabetes type 2, liver cirrhosis from [facility] Patient presents with clinical signs and symptoms consistent with declineing mobility due to medical status, as demonstrated by the following impairment level findings: decreased endurance, decreased bed mobility, unable to demonstrate sit to stand and gait today but reported from nursing staff he needs assist and he reports has declined from 1 week ago significnatly. Impairments are contributing to the following functional limitations: AMPAC score. Patient is assessed as a Moderate 03425 complexity based on the following: History: extensive past medical history significant for heart failure with preserved ejection fraction, hypertension, hyperlipidemia, seizures, CKD, depression, diabetes type 2, liver cirrhosis from [facility] Examination: as outlined and incomplete due to patient tolerance and report from nursing staff Presentation: evolving Decision Making: moderate Goals: Goals X1 week 1. Supine-Sit indep 2. Sit-Supine independent 3. Sit-Stand standby assist with proper sequencing 4. Stand-Sit standby assist with proper sequencing 5. Bed-Chair standby assist 6. Chair-Bed standby assist 7. Gait able to assess with RW 8. Stairs likely not a goal at this time 9. Independent with home exercise program 10. Balance improved to good or better in sitting and able to assess for standing with goal of fair or better Plan of Care/Treatment Plan: will plan to return to baseline status which appears to be RW with assist short distances and transfers. 1-2x/day, 7 days/week x 1 week. Plan of care has been reviewed with the SCHEDULE SUPERVISOR providing the service under Physical Therapy direction. Initiate Physical Therapy intervention for strengthening, bed mobility, transfers, gait, stairs, balance training, use of assistive device. DISCHARGE RECOMMENDATIONS: [x] SNF versus LTC based on ability to participate and progress [] TREATMENT CODE/TIME: 17299 Please sign an return this page within 30 days if you agree with the above POC. Thank you! Physician Signature Date [facility]
--- NOTE | 2024-03-19 12:59 | NUR.NOTE ---
Nursing Note:This RN spoke with Jo Lan, cousin, at request of pt. Pt gave permission to discuss medical condition w/Edyta - updated on pt condition. Informed of visiting hours. Informed of pt request to retrieve phone, mariellaet from [facility] for his duration of stay in the hospital.
--- NOTE | 2024-03-19 14:00 | PGE_ITS ---
Date of Service Date of service: 03/19/24 Time of Service: 14:00 Assessment and Plan Assessment and plan (1) Transaminitis: Status: Acute Assessment and plan: has [facility] cirrhosis of the liver - ongoing Will continue to monitor CMP in AM Will order a hepatitis panel acute and chronic PT is s/p paracentesis with 4 liters drawn. I will also order an usn of his abdomen (2) Hyperlipidemia: Status: Acute Assessment and plan: Considering the pt's liver status I will stop his statin. Will recheck labs in am (3) Essential hypertension: Status: Acute Assessment and plan: Holding propanolol in the setting SBP 92-100 in the setting of liver cirrhosis with ascites Could be resumed when SBP >= 100 sustained (4) Cirrhosis of liver: Status: Acute Assessment and plan: [facility]- ongoing Ascites- negative for SBP as per gram stain Paracentesis for 4 l completed in the ED with application of drainage pouch Surgical consult ongoing for further needs for paracentesis MELD score is 26 and C/P score 11/c (5) Depressive disorder: Status: Chronic Assessment and plan: Continue Bupropion (6) (HFpEF) heart failure with preserved ejection fraction: Status: Acute Assessment and plan: Will order an echocardiogram for completeness as well as BNP (7) DM II (diabetes mellitus, type II), controlled: Status: Acute Assessment and plan: pt was on metformin. This should be held indefinitely 2/2 creatinine evaluation (8) Hypoxia: Status: Acute Assessment and plan: vital signs are noted 99%RA (9) Anemia: Status: Chronic Assessment and plan: Pt's Hg is 6.8. Pt will get a transfusion. Will hemcheck stool (10) Abdominal ascites: Status: Acute Assessment and plan: as above (11) AURELIA (acute kidney injury): Status: Acute Assessment and plan: AURELIA on CKD Cr 5.0 with BUN 92 Slow IV hydration w LR at 50cc/hr d/t risk of increased ascites CMP in AM Will hold IVF 2/2 transfusion (12) CAD (coronary artery disease): Status: Chronic Assessment and plan: History of NSTEMI On ASA and statin Discussed with Dr. Perez Subjective Subjective Interval history since last seen: Pt seen and examined in his room. POC discussed with pt and with the multidisciplinary rounds team Exam Narrative Exam Narrative: Constitutional The patient is lying in bed comfortable without acute distress, improved SOB HENMT: Head is atraumatic, normocephalic, no lymphadenopathy. Facial structures with normal appearance Eyes: Well aligned Neck: No JVD Neuro:alert and oriented to self, person, plac, time and situation. No neurological focal deficit Chest:Chest is symmetrical and normal appearance Resp: Normal respiratory pattern, speaks in full sentences, unlabored breathing, clear lung bilaterally Cardio: regular rhythm, S1, S2, no murmur, capillary refill<3 sec., bilateral radial and dorsalis pedis pulses are positive, palpable GI: Abdomen large rounded , soft and non tender, bowel sounds are present, ostomy appliance to paracentesis site - minimal fluid collection Integumentary: No skin lesions or rash on exposed skin Extremities: strength 5/5 to bilateral lower and upper extremities Psych: RASS 0, congruent mood and normal affect. Objective Last Vital Signs Temp 36.7 C 03/19/24 12:03 Pulse 68 03/19/24 12:03 Resp 17 03/19/24 12:03 BP 101/53 L 03/19/24 12:03 Pulse Ox 99 03/19/24 12:03 Laboratory Results - last 24 hr 03/18/24 03/18/24 03/18/24 10:30 13:25 14:45 WBC RBC Hgb Hct MCV MCH MCHC RDW Plt Count MPV Immature Gran % Neutrophils % Lymphocytes % Monocytes % Eosinophils % Basophils % Nucleated RBC % Absolute Neutrophils Absolute Lymphocytes Absolute Monocytes Absolute Eosinophils Absolute Basophils RBC Morphology Anisocytosis Sodium Potassium Chloride Carbon Dioxide Anion Gap BUN Creatinine Est GFR (CKD-EPI 2020) Glucose Hemoglobin A1c 5.7 Calcium Magnesium Total Bilirubin AST ALT Alkaline Phosphatase Ammonia < 10 L Total Protein Albumin Fluid Source Peritoneal Fluid Color Yellow Fluid Clarity Clear Fluid WBC 94 Fld Polynuclear WBCs % 38 Fluid Mononuclear Cell 62 Crossmatch 03/19/24 03/19/24 06:10 12:52 WBC 12.11 H RBC 2.37 L Hgb 6.8 L* Hct 20.3 L* MCV 86 MCH 28.7 MCHC 33.5 RDW 21.5 H Plt Count 135 MPV 11.1 H Immature Gran % 0.5 Neutrophils % 72.3 Lymphocytes % 15.9 Monocytes % 9.9 Eosinophils % 1.2 Basophils % 0.2 Nucleated RBC % 0.0 Absolute Neutrophils 8.76 H Absolute Lymphocytes 1.93 Absolute Monocytes 1.20 H Absolute Eosinophils 0.15 Absolute Basophils 0.02 RBC Morphology See Below Anisocytosis 2+ Sodium 137 Potassium 4.8 Chloride 106 Carbon Dioxide 16.0 L Anion Gap 15.0 H BUN 95 H* Creatinine 5.1 H* Est GFR (CKD-EPI 2020) 11.90 Glucose 77 Hemoglobin A1c Calcium 8.5 Magnesium 1.7 L Total Bilirubin 1.41 H AST 177 H ALT 97 H Alkaline Phosphatase 212 H Ammonia Total Protein 5.7 L Albumin 2.3 L Fluid Source Fluid Color Fluid Clarity Fluid WBC Fld Polynuclear WBCs % Fluid Mononuclear Cell Crossmatch See Detail Time Spent with Patient Time Spent with Patient: >50 minutes Time was spent: preparing to see the patient(eg.review tests), obtaining and/or reviewing separately otained hiistory, ordering medications,tests, procedures, referring, communicating with other health pediatric critical care nurse, indepentently interpreting results, counseling the patient and care coordination
[2024-03-19] MEDS: Melatonin 3 MG TAB PO (20:18)
[2024-03-19] MEDS: Magnesium Oxide 400 MG TAB PO (20:18)
[2024-03-20] VITALS (9 sets, daily range): BP systolic 83–114; BP diastolic 50–74; PULSE 69–84; RESP 16–20; TEMP 36–36.7; O2SAT 99–100
[2024-03-20 06:59] LABS: HCT 22.4 % (40.0-50.0); HGB 7.6 g/dL (13.5-17.5); MCH 28.5 pg (27.0-33.0); MCHC 33.9 % (32.0-36.0); MCV 84 fL (80-95); MPV 11.6 fL (8.0-11.0); Platelet Count 118 10^3/uL (130-400); RBC 2.67 10^6/uL (4.36-5.78); RDW-SD 63.5 fL
[2024-03-20 07:09] LABS: RDW 20.6 % (11.8-14.1)
[2024-03-20 07:25] LABS: Lipase 265 U/L (16-77)
[2024-03-20] MEDS: Lactulose 20 GM/30 ML CUP 10 GM PO ×2 (08:44→20:26)
[2024-03-20] MEDS: Tamsulosin 0.4 MG CAPCR 0.8 MG PO (08:44)
[2024-03-20] MEDS: buPROPion-CR 150 MG TABCR PO (08:44)
[2024-03-20] MEDS: PARoxetine 20 MG TAB 40 MG PO (08:45)
[2024-03-20] MEDS: Magnesium Oxide 400 MG TAB PO ×2 (08:45→20:25)
[2024-03-20] MEDS: Pantoprazole 40 MG TABCR PO ×2 (08:45→20:25)
[2024-03-20] MEDS: Rifaximin 550 MG TAB PO ×2 (08:45→20:26)
[2024-03-20] MEDS: Aspirin E.C. 81 MG TABEC PO (08:45)
[2024-03-20] MEDS: Normal Saline Flush 10 ML SYR IVP ×3 (08:46→20:30)
--- NOTE | 2024-03-20 10:06 | PTTR_ITS ---
PT Notes Visit Reasons: AURELIA on CKD, ascites, liver cirrhosis, SOB, hypoxia Date: 03/20/2024 PRECAUTIONS: fall, standard precautions SUBJECTIVE: Pt in bed when approached for therapy this morning, pt agreed to participating with therapy session. OBJECTIVE: ? PAIN: Generalized pain right side of his body VITALS: monitored by nursing via telemetry Therapeutic Activities 00729: Direct one-on-one instruction in dynamic acti vities to improve functional performance. ?? BED MOBILITY/TRANSFERS? Rolling L/R: supervision Supine-sit: ? supervision? Sit-supine: ? supervision? Sit-stand: ? SBA ? Stand-sit: ??SBA ? Bed-Chair:? ?SBA ? Chair-bed: SBA Provided skilled cues and instruction on performance and technique throughout. Gait Training [id number]: Direct one-on-one instruction and skilled instruction in: Employing an assistive device Modified weight-bearing status Movement sequencing Turning and movement with proper form Provided verbal cues for equipment management and technique Provided instruction in gait pattern Patient education regarding pacing and breathing techniques to maximize activity tolerance? GAIT? Assistive Device: ?? ? FWW? Weight bearing: FWB Assist: ? ?SBA? Distance:?? ?30'x2 with 180degree at 15' to allow for return to EOB? Deviation: ? Slow melva, low step height, short step length? ASSESSMENT:?Pt able to sit on the EOB unsupported 5mins intervals before doing gait training, pt reported feeling dizzy initially with dizziness subsiding after being upright for awhile, pt reports lowback spasms resolved after walking and right side pain felt much better after being out of bed for the duration of session. PLAN: Continue with balance training, global strengthening and general conditioning for improved safety, mobility and activity tolerance until pt is ready for DC. TREATMENT CODE/TIME: 49271h8 25mins (9:40-10:05am)
[2024-03-20] MEDS: Insulin Aspart 300 UNITS/3 ML PEN SC ×2 (12:02→17:12)
[2024-03-20 12:10] LABS: Amylase, BF 32 U/L; Fluid Type Peritoneal
[2024-03-20 12:31] LABS: Fluid Type Peritoneal; Protein,Total, BF 0.8 g/dL
--- NOTE | 2024-03-20 13:23 | PGE_ITS ---
Date of Service Date of service: 03/20/24 Time of Service: 13:23 Assessment and Plan Assessment and plan (1) Abdominal ascites: Status: Acute Assessment and plan: 64-year-old man with cirrhosis. He has ascites. It is symptomatic although he is certainly in no extremis from this. I have no concerns for SBP. I had a detailed discussion with him at the bedside about removing protein?rich ascites fluid. I discussed with him in detail about the reality that removing this fluid carries risk and is not free to do. Every time we removed fluid, it is dealing valuable nutrition (protein) from him and it will not be replaceable. It is also absolutely certain that the fluid will reaccumulate. How quickly is uncertain, but a couple of days relief is probably all that he can really expect. Medical management (diuretics) is the best strategy, but in his particular case, considering the the kidney injury and the intravascular fluid status, it is somewhat more complex. In truth, paracentesis is truly a palliative procedure meant to relieve suffering. It is not going to help his condition in any way other than feeling better, temporarily, and at the expense of losing protein. He understands the risks, the potential benefits (temporary symptom relief) as well as the indications (palliative). He wants to proceed. Overall plan: We will add him on tomorrow for an ultrasound?guided paracentesis He does NOT need to be n.p.o. for this Subjective Subjective Interval history since last seen: Hospitalist hoping to have Mr. Duran receive another paracentesis before discharge. Reportedly his abdomen is getting distended again and causing pressure and discomfort. At the bedside, the patient denies any severe pain or distress. He does feel the pressure and is hoping to have more fluid removed. Exam Narrative Exam Narrative: General: Nontoxic, comfortable, overall somewhat weak and frail in appearance. He is interactive. Neuro: Alert and oriented x3 Psych: Good mood and affect. Seemingly good insight and understanding into condition. Chest: Non-labored breathing, no wheezing, no visible shortness of breath. Heart: Regular Abdomen: Soft, mild?moderate distention, not tense, no tenderness. Soft, reducible umbilical hernia. Clean, dry and intact dressing in place from prior paracentesis site. Objective Last Vital Signs Temp 98.1 F 03/20/24 11:27 Pulse 69 03/20/24 11:27 Resp 19 03/20/24 11:27 BP 104/65 03/20/24 11:27 Pulse Ox 99 03/20/24 11:27 Laboratory Results - last 24 hr 03/19/24 03/19/24 03/20/24 06:10 15:01 00:48 WBC Cancelled RBC Cancelled Hgb Cancelled Hct Cancelled MCV Cancelled MCH Cancelled MCHC Cancelled RDW Cancelled Plt Count Cancelled MPV Cancelled Lipase ABO/Rh Cancelled A Negative Blood Type Recheck A Negative Antibody Screen NEGATIVE Crossmatch See Detail 03/20/24 06:20 WBC 12.90 H RBC 2.67 L Hgb 7.6 L Hct 22.4 L MCV 84 MCH 28.5 MCHC 33.9 RDW 20.6 H Plt Count 118 L MPV 11.6 H Lipase 265 H ABO/Rh Blood Type Recheck Antibody Screen Crossmatch Time Spent with Patient Time Spent with Patient: 25-34 minutes Time was spent: preparing to see the patient(eg.review tests), obtaining and/or reviewing separately otained hiistory, ordering medications,tests, procedures, referring, communicating with other health intensive care medicine specialist, indepentently interpreting results, counseling the patient and care coordination
--- NOTE | 2024-03-20 14:14 | PGE_ITS ---
Date of Service Date of service: 03/20/24 Time of Service: 14:14 Assessment and Plan Assessment and plan (1) Abdominal ascites: Status: Acute Assessment and plan: 64-year-old man with cirrhosis. He has ascites. It is symptomatic although he is certainly in no extremis from this. I have no concerns for SBP. I had a detailed discussion with him at the bedside about removing protein?rich ascites fluid. I discussed with him in detail about the reality that removing this fluid carries risk and is not free to do. Every time we removed fluid, it is dealing valuable nutrition (protein) from him and it will not be replaceable. It is also absolutely certain that the fluid will reaccumulate. How quickly is uncertain, but a couple of days relief is probably all that he can really expect. Medical management (diuretics) is the best strategy, but in his particular case, considering the the kidney injury and the intravascular fluid status, it is somewhat more complex. In truth, paracentesis is truly a palliative procedure meant to relieve suffering. It is not going to help his condition in any way other than feeling better, temporarily, and at the expense of losing protein. He understands the risks, the potential benefits (temporary symptom relief) as well as the indications (palliative). He wants to proceed. Overall plan: We will add him on tomorrow for an ultrasound?guided paracentesis He does NOT need to be n.p.o. for this (2) Transaminitis: Status: Acute Assessment and plan: has [facility] cirrhosis of the liver - ongoing Will continue to monitor CMP in AM Will order a hepatitis panel acute and chronic PT is s/p paracentesis with 4 liters drawn. I will also order an usn of his abdomen (3) Hyperlipidemia: Status: Acute Assessment and plan: Considering the pt's liver status I will stop his statin. Will recheck labs in am (4) Essential hypertension: Status: Acute Assessment and plan: Holding propanolol in the setting SBP 92-100 in the setting of liver cirrhosis with ascites Could be resumed when SBP >= 100 sustained (5) Cirrhosis of liver: Status: Acute Assessment and plan: [facility]- ongoing Ascites- negative for SBP as per gram stain Paracentesis for 4 l completed in the ED with application of drainage pouch Surgical consult ongoing for further needs for paracentesis MELD score is 26 and C/P score 11/c (6) Depressive disorder: Status: Chronic Assessment and plan: Continue Bupropion (7) (HFpEF) heart failure with preserved ejection fraction: Status: Acute Assessment and plan: Will order an echocardiogram for completeness as well as BNP (8) DM II (diabetes mellitus, type II), controlled: Status: Acute Assessment and plan: pt was on metformin. This should be held indefinitely 2/2 creatinine evaluation (9) Hypoxia: Status: Acute Assessment and plan: vital signs are noted 99%RA (10) Anemia: Status: Chronic Assessment and plan: Pt's Hg is 6.8. Pt will get a transfusion. Will hemcheck stool Pt responded fairly appropriately to the 1unit PRBC transfusion Hg is now at 7.6 (11) AURELIA (acute kidney injury): Status: Acute Assessment and plan: AURELIA on CKD Cr 5.0 with BUN 92 Slow IV hydration w LR at 50cc/hr d/t risk of increased ascites CMP in AM Will hold IVF 2/2 transfusion (12) CAD (coronary artery disease): Status: Chronic Assessment and plan: History of NSTEMI On ASA and statin Discussed with Dr. Perez Subjective Subjective Interval history since last seen: Pt seen and examined in AM today. POC discussed with pt as well as with multidisciplinary team. Pt does endorse a tense abdomen this am. POC also discussed with Dr. Fuller of the general surgery staff. Exam Narrative Exam Narrative: General: Nontoxic, comfortable, overall somewhat weak and frail in appearance. He is interactive. Neuro: Alert and oriented x3 Psych: Good mood and affect. Seemingly good insight and understanding into condition. Chest: Non-labored breathing, no wheezing, no visible shortness of breath. Heart: Regular Abdomen: Soft, mild?moderate distention, not tense, no tenderness. Soft, reducible umbilical hernia. Clean, dry and intact dressing in place from prior paracentesis site. skin: multiple rashes and ecchymotic regions Objective Last Vital Signs Temp 36.7 C 03/20/24 11:27 Pulse 69 03/20/24 11:27 Resp 19 03/20/24 11:27 BP 104/65 03/20/24 11:27 Pulse Ox 99 03/20/24 11:27 Laboratory Results - last 24 hr 03/19/24 03/19/24 03/20/24 06:10 15:01 00:48 WBC Cancelled RBC Cancelled Hgb Cancelled Hct Cancelled MCV Cancelled MCH Cancelled MCHC Cancelled RDW Cancelled Plt Count Cancelled MPV Cancelled Lipase ABO/Rh Cancelled A Negative Blood Type Recheck A Negative Antibody Screen NEGATIVE Crossmatch See Detail 03/20/24 06:20 WBC 12.90 H RBC 2.67 L Hgb 7.6 L Hct 22.4 L MCV 84 MCH 28.5 MCHC 33.9 RDW 20.6 H Plt Count 118 L MPV 11.6 H Lipase 265 H ABO/Rh Blood Type Recheck Antibody Screen Crossmatch Time Spent with Patient Time Spent with Patient: 25-34 minutes Time was spent: preparing to see the patient(eg.review tests), obtaining and/or reviewing separately otained hiistory, ordering medications,tests, procedures, referring, communicating with other health transitional care nurse, indepentently interpreting results, counseling the patient and care coordination
[2024-03-20] MEDS: Midodrine 2.5 MG TAB PO (20:25)
[2024-03-20] MEDS: Melatonin 3 MG TAB PO (20:25)
[2024-03-21] VITALS (13 sets, daily range): BP systolic 79–113; BP diastolic 46–82; PULSE 75–82; RESP 16–167; TEMP 35.8–36.5; O2SAT 99–100
[2024-03-21] MEDS: ALBUMIN HUMAN 25 GM/100 ML BTL IVPB (01:21)
[2024-03-21] MEDS: Normal Saline Flush 10 ML SYR IVP ×4 (01:26→20:46)
[2024-03-21] MEDS: Acetaminophen 325 MG TAB 650 MG PO (01:32)
[2024-03-21 06:08] LABS: Abs Immature Grans 0.03 10^3/uL (0.0-0.06); Absolute Basophil Count 0.02 10^3/uL (0.0-0.2); Absolute Eosinophil Count 0.31 10^3/uL (0.0-0.7); Absolute Lymphocyte Count 1.54 10^3/uL (1.2-3.4); Absolute Monocyte Count 0.69 10^3/uL (0.1-0.8); Absolute Neutrophil Count 5.59 10^3/uL (1.2-6.7); Basophils % 0.2 %; Eosinophils % 3.8 %; Immature Grans % 0.4 %; Lymphocytes % 18.8 %; MCH 28.1 pg (27.0-33.0); MCHC 33.8 % (32.0-36.0); MCV 83 fL (80-95); MPV 11.3 fL (8.0-11.0); Monocytes % 8.4 %; Neutrophils % 68.4 %; RBC 2.35 10^6/uL (4.36-5.78); RDW 20.6 % (11.8-14.1); RDW-SD 61.5 fL; WBC 8.18 10^3/uL (4.4-10.8)
[2024-03-21 06:31] LABS: HGB 6.6 g/dL (13.5-17.5)
[2024-03-21 06:32] LABS: HCT 19.5 % (40.0-50.0)
[2024-03-21 06:43] LABS: ALT 112 U/L (16-63); AST 158 U/L (15-37); Albumin 2.5 g/dL (3.4-5.0); Alkaline Phosphatase 203 U/L (46-116); Anion Gap 16.5 mmol/L (3-11); Bilirubin, Total 1.32 mg/dL (0.2-1.0); CO2 15.5 mmol/L (21.0-32.0); Calcium 8.2 mg/dL (8.5-10.1); Chloride 106 mmol/L (98-107); Estimated GFR 12.79 (mL/min/1.73m2); Glucose 103 mg/dL (74-106); Potassium 4.5 mmol/L (3.5-5.1); Sodium 138 mmol/L (136-145); Total Protein 5.3 g/dL (6.4-8.2)
[2024-03-21 06:47] LABS: BUN 101 mg/dL (7-18); CREATININE 4.8 mg/dL (0.70-1.30)
[2024-03-21 07:12] LABS: Anisocytosis 1+; Diff Comment Diff Reviewed; Hypochromasia 2+; Platelet Count 73 10^3/uL (130-400); Polychromasia Present
[2024-03-21 07:13] LABS: Poikilocytes 1+
[2024-03-21] MEDS: Pantoprazole 40 MG TABCR PO ×2 (07:24→20:46)
--- NOTE | 2024-03-21 07:30 | DI.US_ITS ---
APPROVED REPORT EXAM: Comprehensive 2D, Doppler, and color-flow Echocardiogram Patient Location: In-Patient Room/Bed: 211 Hvac Operations Technician: Robert Vega RDCS (AE) Indications: CHF Conclusion Mild concentric left ventricular hypertrophy. Ejection fraction is 60%. Wall motion is normal Normal right ventricular size and function Both atria are normal in size Aortic valve is calcified and trileaflet. There is mild aortic stenosis. Peak gradient is 30, mean 17 mmHg. Calculated aortic valve area is 1.9 cm??. There is trace aortic regurgitation Mild mitral annular calcification, mild mitral regurgitation Estimated right ventricular systolic pressure is 26 mmHg Wall motion Left Ventricle Left ventricular cavity is small. The left ventricular systolic function is normal. The left ventricu lar ejection fraction is within the normal range. Mild concentric left ventricular hypertrophy. There is normal LV segmental wall motion. There is no ventricular septal defect visualized. LVEF is 60%. Right Ventricle The right ventricle is normal size. The right ventricular systolic function is normal. Atria The left atrium size is normal. The right atrium size is normal. The interatrial septum is intact wit h no evidence for an atrial septal defect. Aortic Valve Aortic valve is calcified. Aortic valve is trileaflet. Mild aortic stenosis. Peak aortic valve gradie nt is 30.14 mmHg. Highest mean aortic valve gradient is 16.7 mmHg. Calculated PAL by the continuity e quation is 1.9 cm2. Trace aortic regurgitation. Mitral Valve Mild mitral annular calcification. No evidence of mitral valve stenosis. Mild mitral regurgitation. Tricuspid Valve The tricuspid valve is normal in structure. There is no tricuspid valve stenosis. Trace tricuspid reg urgitation. The RVSP is 26.4 mmHg. Pulmonic Valve The pulmonary valve is normal in structure. There is no pulmonic valvular stenosis. There is no pulmo kraig valvular regurgitation. Great Vessels The aortic root is normal in size. Ascending aorta is not well visualized. Aortic arch is normal in c aliber. IVC is normal in size and collapses >50% with inspiration. Pericardium There is no pericardial effusion. Ascites is present. 2D Dimensions IVSD d PLAX 1.22 cm M: 0.6-1.2 Ao Root d 3.33 cm M: 3.1 - 3.7 LVPW d PLAX 1.24 cm M: 0.6 - 1.2 LVID d PLAX 3.48 cm M: 4.2 - 5.8 LVDs 2.44 cm M: 2.5 - 4.0 LV EF Teichholz 58.4 % FS 30.10 % LV EDV (Teich) 50.3 mL LV ESV (Teich) 20.9 mL Stroke Vol Index (Teich) 14.49 M-Mode TAPSE 1.33 cm (M/F) >1.7 Auto EF LV EDV A4C 162.6 mL LV EDV A2C 131.8 mL LV EDV BP 143.6 mL LV ESV A4C 68.2 mL LV ESV A2C 54.0 mL LV ESV BP 61.4 mL LVEF(%) A4C 58.1 % LVEF(%) A2C 59.0 % LVEF(%) BP 57.3 % LV SV A4C 94.4 ml LV SV A2C 77.7 ml LV SV BP 82.3 ml LV CO A4C 7.2 L/min LV CO A2C 6.0 L/min LV CO BP 6.6 L/min HR A4C 76.60 BPM HR A2C 76.73 BPM LV EDV Index (BP) LA Volume LA Length A4C 4.5 cm LA Length A2C 5.2 cm LA Area A4C s 15.40 cm2 LA Area A2C s 17.28 cm2 LA Vol A4C A-L 44.50 mL LA Vol A2C A-L 48.84 mL LA Vol Biplane A-L 49.9 mL LA Vol/BSA A4C A-L LA Vol/BSA A2C A-L LA Vol/BSA BP A-L 24.6 mL/m2 LA Vol A4C MOD 40.2 mL LA Vol A2C MOD 45.3 mL LA Vol BP MOD 45.0 mL RA Volume RA Area A4C 10.7 cm2 RA ESV A4C (A-L) 16.7mL RA Vol/BSA A4C A-L RA Length A4C 5.8 cm RA ESV A4C (MOD) 15.9mL LV Diastology MV E' medial 0.085 (>0.07 m/s) MV E Vmax 0.71 (0.4-1.3 m/s) MV E/E' MED 8.42 (<14) MV A Vmax 1.05 (0.4-1.3 m/s) MV E' lateral 0.103 (>0.1 m/s) E/A Ratio 0.7 MV E/E' LAT 6.92 (<14) MV E' Average 0.094 m/s MV E/E'(average) 7.59 Aortic Valve AoV Vmax 2.75 m/s LVOT Vmax 1.27 m/s AoV Peak Grad 30.1 mmHg LVOT Peak Grad 6.4 mmHg AoV Area (Vmax) 1.79 cm2 LVOT VTI 0.300 m AoV VTI 0.611 m LVOT Mean Grad 4.0 mmHg AoV Mean Live. 1.91 m/s LVOT SV 116.31 mL AoV Mean Grad 16.7 mmHg LVOT Diam s 2.20 cm AoV Area (VTI) 1.90 cm2 AV Regurg Peak Gr. 30.14 mmHg Velocity Ratio 0.46 Mitral Valve MV Vmax TIPS 1.05 m/s MV Mean Grad 2.1 (<2mmHg) MV VTI 0.314 m Pulmonary Valve PV Vmax 1.20 (0.5-1.5 m/s) RVOT Vmax 0.77 m/s PV Peak Grad 5.8 mmHg RVOT Peak Gr. 2.4 mmHg PV Mean Live 0.84 m/s RVOT VTI 0.168 m PV Mean Grad 3.3 mmHg RVOT Mean Gr. 1.2 mmHg Tricuspid Valve RA Pressure 3.00 mmHg TR Vmax 2.42 m/s TR Peak Grad 23.4 mmHg RVSP (TR) 26.4 mmHg
--- NOTE | 2024-03-21 08:11 | W.NUTCONSULT ---
Date of service: 03/21/24 Time of Service: 08:11 Nutritional Consult ASSESSMENT: Hair is a 64 to male admitted with CAD, transaminitis, NAFL cirrhhosis with abd ascites, AURELIA on CKD, depression, heart failure
[2024-03-21] MEDS: Tamsulosin 0.4 MG CAPCR 0.8 MG PO (09:06)
[2024-03-21] MEDS: PARoxetine 20 MG TAB 40 MG PO (09:08)
[2024-03-21] MEDS: Midodrine 2.5 MG TAB PO ×3 (09:08→20:46)
[2024-03-21] MEDS: Rifaximin 550 MG TAB PO ×2 (09:08→20:46)
[2024-03-21] MEDS: Aspirin E.C. 81 MG TABEC PO (09:08)
[2024-03-21] MEDS: Lactulose 20 GM/30 ML CUP 10 GM PO ×2 (09:09→20:46)
[2024-03-21] MEDS: buPROPion-CR 150 MG TABCR PO (09:09)
[2024-03-21] MEDS: Magnesium Oxide 400 MG TAB PO ×2 (09:48→20:46)
--- NOTE | 2024-03-21 10:09 | PDOC.CMPRO ---
Date of service: 03/21/24 Time of Service: 10:09 Care Management Progress Note Progress Note Text Progress Note Text: Hair was lying in bed, with a unit of blood hanging, when CM met with him this afternoon. He stated that he is not happy at the [facility], but also does not believe that he can go home alone and adequately care for himself. Hair stated that he was promised extra help from a SW, in this hospital, prior to going to [facility], but it appears it was [facility] who transferred him there. Hair was sleepy, and nodded off while speaking to CM. Discharge Potential Discharge Needs: Surgical F/U Appt and Other (f/u with provider at [facility]) Anticipated Barriers to Discharge: Medical Status Patient/Family Education Needs: Review discharge instructions, discuss Ask Me Three Transportation: Facility Transport ( likely will transport via facility van, or by [facility] private car if needed.) Plan: Anticipate that Hair will return to [facility] once medically stable. He will f/u with the facility provider and will likely need surgical f/u as well. Palliative care will continue to follow him as an outpatient. CM will continue to follow and to update the plan as needed. SDOH(Care Management) Screening Will the Patient Participate in the Screening?: Declined to provide
--- NOTE | 2024-03-21 11:10 | W.PM.PROGNOT ---
Date of Service Date of service: 03/21/24 Time of Service: 11:10 Assessment and Plan Assessment and plan (1) Abdominal ascites: Status: Acute Assessment and plan: 64-year-old man with cirrhosis. He has ascites. It is symptomatic although he is certainly in no extremis from this. I have no concerns for SBP. I had a detailed discussion with him at the bedside about removing protein?rich ascites fluid. I discussed with him in detail about the reality that removing this fluid carries risk and is not free to do. Every time we removed fluid, it is dealing valuable nutrition (protein) from him and it will not be replaceable. It is also absolutely certain that the fluid will reaccumulate. How quickly is uncertain, but a couple of days relief is probably all that he can really expect. Medical management (diuretics) is the best strategy, but in his particular case, considering the the kidney injury and the intravascular fluid status, it is somewhat more complex. In truth, paracentesis is truly a palliative procedure meant to relieve suffering. It is not going to help his condition in any way other than feeling better, temporarily, and at the expense of losing protein. He understands the risks, the potential benefits (temporary symptom relief) as well as the indications (palliative). He wants to proceed. Overall plan: We will add him on tomorrow for an ultrasound?guided paracentesis He does NOT need to be n.p.o. for this 03/21/24 Pt is to have therapeutic thoracentesis today. Pt does have somewhat low bp's so I dont know how much will be able to be removed. Additionally, fluid analysis from his first thoracentesis are still pending the final results (2) Transaminitis: Status: Acute Assessment and plan: has MERCHANT cirrhosis of the liver - ongoing Will continue to monitor CMP in AM Will order a hepatitis panel acute and chronic PT is s/p paracentesis with 4 liters drawn. I will also order an usn of his abdomen 03/21/24 Hepatitis panels are pending but this is more for the sake of completeness as the pt has a known history of MERCHANT I have also held his statin. (3) Hyperlipidemia: Status: Acute Assessment and plan: Considering the pt's liver status I will stop his statin. Will recheck labs in am (4) Essential hypertension: Status: Acute Assessment and plan: Holding propanolol in the setting SBP 92-100 in the setting of liver cirrhosis with ascites Could be resumed when SBP >= 100 sustained (5) Cirrhosis of liver: Status: Acute Assessment and plan: MERCHANT- ongoing Ascites- negative for SBP as per gram stain Paracentesis for 4 l completed in the ED with application of drainage pouch Surgical consult ongoing for further needs for paracentesis MELD score is 26 and C/P score 11/c (6) Depressive disorder: Status: Chronic Assessment and plan: Continue Bupropion 03/21/24 Pt is on paxil and wellbutrin. Will attempt to discuss with pt the polypharmacy. Will also d/w pharmacy in MDR (7) (HFpEF) heart failure with preserved ejection fraction: Status: Acute Assessment and plan: Will order an echocardiogram for completeness as well as BNP. Pt is currently on demadex but has been on entresto in the past. In reviewing epocrates, the recommendation was to stop this med if he is c/p c, which he was on my original calculation. Still awaiting echo results as well (8) DM II (diabetes mellitus, type II), controlled: Status: Acute Assessment and plan: pt was on metformin. This should be held indefinitely 2/2 creatinine evaluation. His last a1c 03/18/24 showed a value of 5.7 (9) Hypoxia: Status: Acute Assessment and plan: vital signs are noted 99%RA (10) Anemia: Status: Chronic Assessment and plan: Pt's Hg is 6.8. Pt will get a transfusion. Will hemcheck stool Pt responded fairly appropriately to the 1unit PRBC transfusion Hg is now at 7.6 03/21/2024 H&H has dropped and his hemoglobin is now 6.8. Patient was noted to have melanotic stools as well. On my discussion with him at this morning he states his last colonoscopy was approximately 10 years ago. Will await input from general surgery but this is most likely a sequelae of his underlying disease processes (11) AURELIA (acute kidney injury): Status: Acute Assessment and plan: AURELIA on CKD Cr 5.0 with BUN 92 Slow IV hydration w LR at 50cc/hr d/t risk of increased ascites CMP in AM Will hold IVF 2/2 transfusion (12) CAD (coronary artery disease): Status: Chronic Assessment and plan: History of NSTEMI On ASA and statin Discussed with Dr. Perez Exam Narrative Exam Narrative: General: Nontoxic, comfortable, overall somewhat weak and frail in appearance. He is interactive. Neuro: Alert and oriented x3 Psych: Good mood and affect. Seemingly good insight and understanding into condition. Chest: Non-labored breathing, no wheezing, no visible shortness of breath. Heart: Regular Abdomen: Soft, mild?moderate distention, not tense, no tenderness. Soft, reducible umbilical hernia. Clean, dry and intact dressing in place from prior paracentesis site. skin: multiple rashes and ecchymotic regions BLEE 2 plus Objective Last Vital Signs Temp 36.4 C L 03/21/24 08:31 Pulse 77 03/21/24 08:31 Resp 18 03/21/24 08:31 BP 101/55 L 03/21/24 08:31 Pulse Ox 100 03/21/24 08:31 Laboratory Results - last 24 hr 03/18/24 03/18/24 03/21/24 13:25 13:25 05:35 WBC Cancelled RBC Cancelled Hgb Cancelled Hct Cancelled MCV Cancelled MCH Cancelled MCHC Cancelled RDW Cancelled Plt Count Cancelled MPV Cancelled Immature Gran % Neutrophils % Lymphocytes % Monocytes % Eosinophils % Basophils % Nucleated RBC % Absolute Neutrophils Absolute Lymphocytes Absolute Monocytes Absolute Eosinophils Absolute Basophils RBC Morphology Polychromasia Hypochromasia Poikilocytosis Anisocytosis Sodium Potassium Chloride Carbon Dioxide Anion Gap BUN Creatinine Est GFR (CKD-EPI 2020) Glucose Calcium Total Bilirubin AST ALT Alkaline Phosphatase Total Protein Albumin Fluid Type Peritoneal Peritoneal Fluid Glucose 76 Fluid Total Protein 0.8 Fluid Albumin <1.0 Fluid Amylase 32 03/21/24 05:40 WBC 8.18 RBC 2.35 L Hgb 6.6 L* Hct 19.5 L* MCV 83 MCH 28.1 MCHC 33.8 RDW 20.6 H Plt Count 73 L MPV 11.3 H Immature Gran % 0.4 Neutrophils % 68.4 Lymphocytes % 18.8 Monocytes % 8.4 Eosinophils % 3.8 Basophils % 0.2 Nucleated RBC % 0.0 Absolute Neutrophils 5.59 Absolute Lymphocytes 1.54 Absolute Monocytes 0.69 Absolute Eosinophils 0.31 Absolute Basophils 0.02 RBC Morphology See Below Polychromasia Present Hypochromasia 2+ Poikilocytosis 1+ Anisocytosis 1+ Sodium 138 Potassium 4.5 Chloride 106 Carbon Dioxide 15.5 L Anion Gap 16.5 H BUN 101 H* Creatinine 4.8 H* Est GFR (CKD-EPI 2020) 12.79 Glucose 103 Calcium 8.2 L Total Bilirubin 1.32 H AST 158 H ALT 112 H Alkaline Phosphatase 203 H Total Protein 5.3 L Albumin 2.5 L Fluid Type Fluid Glucose Fluid Total Protein Fluid Albumin Fluid Amylase Time Spent with Patient Time Spent with Patient: >50 minutes Time was spent: preparing to see the patient(eg.review tests), obtaining and/or reviewing separately otained hiistory, ordering medications,tests, procedures, referring, communicating with other health direct care counselor, indepentently interpreting results, counseling the patient and care coordination
--- NOTE | 2024-03-21 11:42 | PHA.REVIEW2 ---
Pharmacy Admission Review Admission Clinical Review Admission Pharmacy Review: Transaminitis (Acute) Hyperlipidemia (Acute) Essential hypertension (Acute) Cirrhosis of liver (Acute) (HFpEF) heart failure with preserved ejection fraction (Acute) DM II (diabetes mellitus, type II), controlled (Acute) Hypoxia (Acute) Abdominal ascites (Acute) AURELIA (acute kidney injury) (Acute) banana Allergy (Verified 03/19/24 13:30) Unknown dust,perfume,smoke Allergy (Mild, Uncoded 03/18/24 08:53) Other (See Comment) Resuscitation Status DNR/DNI Height 5 ft 8 in Weight 89 kg Comments Comments/Follow Ups: Paracentesis today per progress note. Follow up on external meds (see home med review section) Pharmacy Admission Review Renal Dosing Renal Dosing: BUN 101 mg/dL (7-18) H* 03/21/24 05:40 Creatinine 4.8 mg/dL (0.70-1.30) H* 03/21/24 05:40 Medications needing adjustments: Reviewed (CrCl 16.8 mL/min, BUN increased from 95, SCr decreased from 5.1) List of meds needing interventions: Current medications are okay Anticoagulation Anticoagulation: Hgb 6.6 g/dL (13.5-17.5) L* 03/21/24 05:40 Hct 19.5 % (40.0-50.0) L* 03/21/24 05:40 Plt Count 73 10^3/uL (130-400) L 03/21/24 05:40 INR 1.3 (0.9-1.1) H 03/18/24 11:13 Creatinine 4.8 mg/dL (0.70-1.30) H* 03/21/24 05:40 DVT Prophylaxis: Reviewed (SCDs, Hgb decreased from 7.6 and Hct decreased from 22.4 - provider plans on another transfusion today per morning meeting) Relevant Labs Relevant Labs: Sodium 138 mmol/L (136-145) 03/21/24 05:40 Potassium 4.5 mmol/L (3.5-5.1) 03/21/24 05:40 Chloride 106 mmol/L (98-107) 03/21/24 05:40 Magnesium 1.7 mg/dL (1.8-2.4) L 03/19/24 06:10 Electrolytes, C-Reactive P, ESR: Reviewed (AST/ALT 158/112, WBC decreased from 12.9 to 8.18) DM Control DM Control: Glucose 103 mg/dL (74-106) 03/21/24 05:40 Hemoglobin A1c 5.7 % (<5.7) 03/18/24 10:30 Finger Stick Blood Glucose 139 1130 Finger Stick Blood Glucose 139 1130 Finger Stick Blood Glucose 96 0823 Finger Stick Blood Glucose 96 0823 DM Control: Reviewed Insulin Dosing, Diabetic Medication: Has order for SS insulin Cardiac Review Cardiac Review: Blood Pressure 101/55 0831 Blood Pressure 98/73 0542 Blood Pressure 113/74 0102 BP, HR, EF%: Reviewed (HR WNL) List meds needing interventions: Has order for midodrine for 2.5mg TID and torsemide 20mg daily QTc Review QTc: Intervened (531 from 03/18/24) List meds needing interventions: Asked provider about the PRN ondansetron order. Provider asked that it be discontinued. IV to PO Switch IV Medications: Reviewed Home Meds Home Med List reviewed: Intervened Relevent Home Meds Not ordered & why?: rosuvastatin (on hold due to cirrhosis), propranolol (on hold per H+P), spironolactone Patient recently filled for Jardiance, Entresto, zolpidem and Trulicity but they are not on home med list. Asked nursing to check with patient, waiting to hear back. Updated bupropion on home med list from SR to XL per fill history. Informed provider who asked that the current active order be changed as well. Order was updated. Paroxetine order put in for 40mg daily but per Rx patient takes 60mg (1.5 tabs) daily. Informed provider who asked that the order be changed to 60mg daily. Removed from home med list (said on hold/not taking): atorvastatin, cyclobenzaprine, enalapril lamotrigine, metformin and trazodone Current Meds Current Medication Order Review: Intervened Comments: See changes above Comments Comments/Follow Ups: Paracentesis today per progress note. Follow up on external meds (see home med review section)
--- NOTE | 2024-03-21 12:48 | PCNE_ITS ---
Date of service: 03/21/24 Time of Service: 03:30 History of Present Illness History of Present Illness Chief Complaint: cirrhosis and ascites Narrative: From H and P History of Present Illness History of Present Illness Chief Complaint: Shortness of breath Narrative: This 64-year-old male patient with extensive past medical history significant for heart failure with preserved ejection fraction, hypertension, hyperlipidemia, seizures, CKD, depression, diabetes type 2, liver cirrhosis from [facility] presented to the ED at [facility] from his assisted living facility for evaluation of shortness of breath. Patient stating getting short of breath at times during sleep while dreaming with improvement when he wakes up. Patient mentioned refusing to take lactulose due to diarrhea as we staff seems to be aggressive with him when he has diarrhea. In the ED the patient denied shortness of breath chest pain. In the prior notes mention significant abdominal distention and patient pointing to last paracentesis performed about a month ago. The patient was unable to provide a clear history to the ED provider. Workup in the ED was significant for WBC at 14.66 H&H at 7.2 and 22.1, BUN was 92 with a creatinine of 5.0, potassium 5.1, anion gap of 16.1 mild transaminitis with total bilirubin of 1.9. Lipase was 244 without symptoms of overt pancreatitis. The ED provider completed a paracentesis for total of 4 L of clear yellow fluid. Surgical consult was also completed with Dr. Cameron Gonzalez. Patient abdomen was still leaking small amount of fluids but no further fluid collection at this time due to systolic blood pressure falling around 100 mmHg. But the hospitalist was consulted and patient admitted for evaluation and management of chronic anemia, cirrhosis with ascites, AURELIA on CKD, leukocytosis . When seen, patient reported dizziness and improved shortness of breath. The patient denied recent change in vision, headache, chest pain, nausea, vomiting, hematochezia or melena, and dysuria. Reporting diarrhea due to his intake of lactulose. Patient mention having been diagnosed with esophageal ulcers by surgical team from another facility and is currently on PPI. Patient confirmed CODE STATUS as a DNR/DNI. INTERIM HX: Hair is lying in his bed. He recently had a paracentesis and they tapped another 7 L. This brings his total up to 10 L in the last few days. He also is anemic and received 2 units of blood. He did have an echo which showed some mitral regurg. He states that he is feeling better. Just prior to being tapped he has problems with breathing and discomfort but he is doing much better. Hair understands that he has a life limiting disease. He was not able to name his disease because he said the name of it had changed (it is MERCHANT) he knows that this cirrhosis will end up killing him. He knows that there is no cure for this. He has been offered to look into liver transplant but is not interested in this. He wants to continue with the paracenteses and blood as long as his life gives him pleasure. He states that when he gets the most pressure from his eating. Unfortunately living at [facility], he states that the food leaves something to be desired. He truly wants to go home but knows that he is not able to. He states that he can go about 2 feet but then weakness takes over him and he needs assistance. He is very unsteady on his feet. He is upset because at the jail he is at their long wait times between ringing the askew and getting assistance. He states between 90 in the 120 minutes. In the past he was living alone. He does not drink and has not really since his college days. He never was a smoker. He is and never had children. He said his dad in 2000 from a similar cause. He states his mother of lung cancer January 2022. 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 He wonders if some of his problem is not depression. In the past he had fun enjoying hockey music and reading. He feels like some of this has come to an end. His [id number] is now his DPOA. He is not real happy with this. He likes making his own decisions. The last time he was at [facility] they were trying to increase his services so he could go home. He does not think that that would be something that he could do. He is upset right now because he does not know where all of his property is. Assessment and Plan Assessment and plan (1) Depressive disorder: Status: Chronic (2) (HFpEF) heart failure with preserved ejection fraction: Status: Acute (3) DM II (diabetes mellitus, type II), controlled: Status: Acute (4) Cirrhosis of liver: Status: Acute (5) Abdominal ascites: Status: Acute (6) Anemia: Status: Chronic Assessment and plan: Hair was very clear. He stated that he does not want a liver transplant. He understands that he is dying. He also is not interested in hemodialysis. If he were to have another heart attack he does not want to go to [facility]. Anemia he is receiving blood during our visit together Abdominal ascites he has had a significant amount taken off in the last few days. I did ask him specifically when he would know that he should stop having paracentesis. At this point he states that it does give him comfort so he would like to continue. He would like to go back to a different place than health and rehab but realizes that that is not probably possible He does understand the lactulose causes diarrhea but he states it is almost unbearable because he cannot get to the toilet in time I did ask him specifically how long he thinks he has to live. He states that he is uncertain but he knows that he is coming to the end of his life. He is not yet ready to go on comfort care because he still wants to be transported back to the hospital if his breathing worsens or he needs a paracentesis Discussed with Hospitalist He may be a candidate for changing his antidepressants. Perhaps increasing his bupropion to 300 mg daily and decreasing his Paxil. It may have the effect of increasing his energy levels which would be good Review of Systems Narrative: See HPI PFSH All Active Problems (Updated 03/18/24 @ 17:53 by Trinh Copeland APRN) CAD (coronary artery disease) (Chronic) Transaminitis (Acute) Hyperlipidemia (Acute) Essential hypertension (Acute) Cirrhosis of liver (Acute) Depressive disorder (Chronic) (HFpEF) heart failure with preserved ejection fraction (Acute) DM II (diabetes mellitus, type II), controlled (Acute) Hypoxia (Acute) Anemia (Chronic) Abdominal ascites (Acute) AURELIA (acute kidney injury) (Acute) Social History Smoking/Tobacco Use Status: Never Smoking risk assessment performed?: Yes Alcohol Intake: former Drug use: Never Substance use type: does not use Housing: assisted living facility Do you feel safe in your relationship?: Yes Exam Narrative Exam Narrative: 64-year-old man lying in bed. He was very specific in his replies to my questions. His heart was regular, rate controlled, systolic murmur 2/6. Lungs decreased airflow probably due to lying Abdomen bowel sounds in all 4 quadrants, obese, mildly tender. 2-3+ edema in his lower extremities. Mental status he seemed apathetic, depressed, but is looking forward to different things in life such as good food Results Last Vital Signs Temp 97.5 F L 03/21/24 08:31 Pulse 77 03/21/24 08:31 Resp 18 03/21/24 08:31 BP 101/55 L 03/21/24 08:31 Pulse Ox 100 03/21/24 08:31 1. Able to Understand Medical Problem: Observations: Did a good job in explaining to me what he has although he could not remember nonalcoholic steatohepatitis 2. Able to Understand Proposed Treatment: Observations: He understands that liver transplant is a possibility but he is not interested in doing this 3. Able to Understand Alternative to Proposed Treatment (if any): Observations: He still is interested in paracentesis and blood transfusions 4. Able to Understand Option of Refusing Proposed Treatment (including withholding or withdrawing proposed treatment): Observations: He states that he knows he will either way whether he gets the paracentesis, blood transfusions etc. 5. Able to Appreciate Reasonably Foreseeable Consequences of Accepting Proposed Treatment: Observations: Prolonged life, hopefully more comfortable 6. Able to Appreciate Resonably Foreseeable Consequences of Refusing Proposed Treatment (including withholding or withdrawing proposed treatment): Observation: He is not yet ready to go on comfort care Note: for questions 7a/7b a Yes answer means the person's decision is affected by the depression of psychosis. 7a. The Person's Decision is Affected by Depression: Observations: May be influenced by depression 7b. The Person's Decision is Affected by Delusion/Psychosis: Observations: Does not have delusions or psychosis Overall Impression: Definitely Capable Probably Capable XXXXX Probably Incapable Definitely Incapable Comments: Labs 03/22/24 05:50 03/22/24 05:50 Labs: Laboratory Results - last 24 hr 03/18/24 03/18/24 03/19/24 13:25 13:25 15:01 WBC RBC Hgb Hct MCV MCH MCHC RDW Plt Count MPV Immature Gran % Neutrophils % Lymphocytes % Monocytes % Eosinophils % Basophils % Nucleated RBC % Absolute Neutrophils Absolute Lymphocytes Absolute Monocytes Absolute Eosinophils Absolute Basophils RBC Morphology Polychromasia Hypochromasia Poikilocytosis Anisocytosis Sodium Potassium Chloride Carbon Dioxide Anion Gap BUN Creatinine Est GFR (CKD-EPI 2020) Glucose Calcium Total Bilirubin AST ALT Alkaline Phosphatase Total Protein Albumin Fluid Type Peritoneal Peritoneal Fluid Glucose 76 Fluid Total Protein 0.8 Fluid Albumin <1.0 Fluid Amylase 32 ABO/Rh A Negative Antibody Screen NEGATIVE Crossmatch See Detail 03/21/24 03/21/24 05:35 05:40 WBC Cancelled 8.18 RBC Cancelled 2.35 L Hgb Cancelled 6.6 L* Hct Cancelled 19.5 L* MCV Cancelled 83 MCH Cancelled 28.1 MCHC Cancelled 33.8 RDW Cancelled 20.6 H Plt Count Cancelled 73 L MPV Cancelled 11.3 H Immature Gran % 0.4 Neutrophils % 68.4 Lymphocytes % 18.8 Monocytes % 8.4 Eosinophils % 3.8 Basophils % 0.2 Nucleated RBC % 0.0 Absolute Neutrophils 5.59 Absolute Lymphocytes 1.54 Absolute Monocytes 0.69 Absolute Eosinophils 0.31 Absolute Basophils 0.02 RBC Morphology See Below Polychromasia Present Hypochromasia 2+ Poikilocytosis 1+ Anisocytosis 1+ Sodium 138 Potassium 4.5 Chloride 106 Carbon Dioxide 15.5 L Anion Gap 16.5 H BUN 101 H* Creatinine 4.8 H* Est GFR (CKD-EPI 2020) 12.79 Glucose 103 Calcium 8.2 L Total Bilirubin 1.32 H AST 158 H ALT 112 H Alkaline Phosphatase 203 H Total Protein 5.3 L Albumin 2.5 L Fluid Type Fluid Glucose Fluid Total Protein Fluid Albumin Fluid Amylase ABO/Rh Antibody Screen Crossmatch Palliative Performance Scale % Ambulation Activity and Evidence of Disease Self Care Intake Level of Consciousness 100 Full Normal activity, no evidence of disease Full Normal Full 90 Full Normal activity, some evidence of disease Full Normal Full 80 Full Normal activity with effort, some evidence of disease Full Normal or reduced Full 70 Reduced Unable to do normal work, some evidence of disease Full Normal or reduced Full 60 Reduced Unable to do hobby or some housework, significant disease Occasional assist necessary Normal or reduced Full or confusion 50 Mainly sit/lie Unable to do any work, extensive disease Considerable assistance required Normal or reduced Full or confusion 40 Mainly in bed Unable to do any work, extensive disease Mainly assistance Normal or reduced Full, drowsy, or confusion 30 Totally bed bound Unable to do any work, extensive disease Total care Reduced Full, drowsy, or confusion 20 Totally bed bound Unable to do any work, extensive disease Total care Minimal sips Full, drowsy, or confusion 10 Totally bed bound Unable to do any work, extensive disease Total care Mouth care only Drowsy or coma 0 - - - - Patient Score: 30% Imaging Additional studies: wcho - reviewed report Time Spent Time Spent with Patient Time Spent(min): 98
--- NOTE | 2024-03-21 13:23 | NUR.NOTE ---
Documentation reviewed with Ange Jimenez, student [employer]ACH[employer]. In agreement with her findings. Dang Jeter, MSN, RNC-OB, clinical instructor
--- NOTE | 2024-03-21 13:55 | W.PM.OP ---
Operative Note Operative Note Refer to Anesthesia Record Procedure Description: PROCEDURES PERFORMED: 1. U/S guided paracentesis PREOPERATIVE DIAGNOSIS: liver failure POSTOPERATIVE DIAGNOSIS: liver failure SURGEON: Diane Dotson MD INDICATION FOR PROCEDURE: palliative symptom relief from recurrent ascites FINDINGS: 6.6L of straw-colored ascitic fluid removed. Not sent for diagnostic testing. SURVEILLANCE-INTERVAL/FOLLOW-UP: Follow-up with PCP and/or GI doctors. Medical (diuretic) management is preferred and paracentesis should only be for palliative purposes. Specimens: no EBL: Minimal COMPLICATIONS: None Procedure in detail: The patient gave written consent and was in agreement with the indications, the potential risks as well as the benefits of the procedure. We performed a timeout and we are in agreement I started the procedure. I used an ultrasound to identify a deep fluid?filled pocket in the abdominal cavity. I then prepped and draped the abdominal wall. I injected local anesthetic. This was tolerated well. In typical/usual fashion, I made a very small skin incision and then I advanced the paracentesis catheter complex while aspirating. Once I had straw-colored fluid, only the catheter was advanced and then we removed the ascitic fluid using vacuum canisters. Because he has had an issue during this hospitalization with both kidney failure as well as hypotension, I elected to stop at almost 7 L in order to avoid any hemodynamic instability and/or worsening of his kidney function. The patient tolerated the procedure well. Date of Procedure: 03/21/24
--- NOTE | 2024-03-21 15:54 | PT.INNT ---
PT Notes Visit Reasons: AURELIA on CKD, ascites, liver cirrhosis, SOB, hypoxia Pt approached x 2 in the am for PT. He was noted to be supine with HOB flat for both attempts. He politely declined stating he was in too much discomfort which increases if he sits up. He was again approached in the afternoon in which he again was supine and receiving 2 unit pRBC . Nurse also present stating pt would need to be on hold until completion of transfusion. Pt will be reapproached for PT tomorrow.
[2024-03-21 16:23] LABS: HBs Antibody, Qual Negative (See Note); Hepatitis B Core Antibody Negative (Negative); Hepatitis B surface Ag Negative (Negative); Hepatitis C Ab w Rflx HCV PCR Negative (Negative)
[2024-03-21] MEDS: Insulin Aspart 300 UNITS/3 ML PEN SC (16:50)
--- NOTE | 2024-03-21 17:23 | NUR.NOTE ---
Nursing Note: provider Chris aware of hypotensive BP. no further orders at this time.
[2024-03-21 17:57] LABS: Hepatitis A Antibody IgM Negative (Negative); Hepatitis B Core Antibody Negative (Negative); Hepatitis B surface Ag Negative (Negative); Hepatitis C Ab w Rflx HCV PCR Negative (Negative)
[2024-03-21] MEDS: Melatonin 3 MG TAB PO (20:46)
[2024-03-22] MEDS: Normal Saline Flush 10 ML SYR IVP ×3 (00:48→08:16)
[2024-03-22 03:35] VITALS: BP 108/72; PULSE 81; RESP 20; TEMP 36.7; O2SAT 99
[2024-03-22] MEDS: MORPHine 2 MG/ML SYR IVP (04:37)
[2024-03-22] MEDS: Lidocaine 2% Viscous 15 ML CUP PO (04:38)
[2024-03-22 07:12] LABS: HCT 25.6 % (40.0-50.0); HGB 8.9 g/dL (13.5-17.5); MCH 28.8 pg (27.0-33.0); MCHC 34.8 % (32.0-36.0); MCV 83 fL (80-95); MPV 11.4 fL (8.0-11.0); RBC 3.09 10^6/uL (4.36-5.78); RDW 18.9 % (11.8-14.1); RDW-SD 56.5 fL; WBC 8.63 10^3/uL (4.4-10.8)
[2024-03-22 07:20] LABS: INR 1.3 (0.9-1.1); Prothrombin Time 12.6 sec (9.1-11.1)
[2024-03-22 07:39] LABS: Platelet Count 59 10^3/uL (130-400)
[2024-03-22 07:40] LABS: PHOSPHORUS 5.8 mg/dL (2.6-4.7)
[2024-03-22 07:46] LABS: ALT 122 U/L (16-63); AST 138 U/L (15-37); Albumin 2.4 g/dL (3.4-5.0); Alkaline Phosphatase 212 U/L (46-116); Anion Gap 16.3 mmol/L (3-11); Bilirubin, Total 1.57 mg/dL (0.2-1.0); CO2 16.7 mmol/L (21.0-32.0); Calcium 8.1 mg/dL (8.5-10.1); Chloride 106 mmol/L (98-107); Glucose 80 mg/dL (74-106); Potassium 4.4 mmol/L (3.5-5.1); Sodium 139 mmol/L (136-145); Total Protein 5.6 g/dL (6.4-8.2)
[2024-03-22 07:50] LABS: BUN 101 mg/dL (7-18)
[2024-03-22 07:51] LABS: CREATININE 4.4 mg/dL (0.70-1.30)
[2024-03-22] MEDS: Lactulose 20 GM/30 ML CUP 10 GM PO (08:12)
[2024-03-22] MEDS: Rifaximin 550 MG TAB PO (08:13)
[2024-03-22] MEDS: PARoxetine 20 MG TAB 60 MG PO (08:13)
[2024-03-22] MEDS: Midodrine 2.5 MG TAB PO ×2 (08:14→13:24)
[2024-03-22] MEDS: Pantoprazole 40 MG TABCR PO (08:14)
[2024-03-22] MEDS: Magnesium Oxide 400 MG TAB PO (08:14)
[2024-03-22] MEDS: buPROPion-XL 150 MG TABCR PO (08:15)
[2024-03-22] MEDS: Aspirin E.C. 81 MG TABEC PO (08:15)
[2024-03-22] MEDS: Tamsulosin 0.4 MG CAPCR 0.8 MG PO (08:15)
[2024-03-22 08:36] VITALS: BP 96/58; PULSE 89; RESP 17; TEMP 36.5; O2SAT 99
--- NOTE | 2024-03-22 09:41 | PT.INTREAT ---
PT Notes Visit Reasons: AURELIA on CKD, ascites, liver cirrhosis, SOB, hypoxia Date: 03/22/2024 PRECAUTIONS: fall, standard precautions SUBJECTIVE: Pt in seated at edge of bed when approached for therapy this morning, Pt reports feeling much better today as compared to yesterday after receiving transfusion and having paracentesis performed. He remains resistive to participating in PT session but did agree to participate this morning. OBJECTIVE: ? PAIN: Generalized pain right side of his body VITALS: monitored by nursing via telemetry Therapeutic Activities 31727: Direct one-on-one instruction in dynamic activities to improve functional performance. ?? BED MOBILITY/TRANSFERS? Rolling L/R: supervision Supine-sit: ? supervision? Sit-supine: ? supervision? Sit-stand: ? SBA ? Stand-sit: ??SBA ? Bed-Chair:? ?CGA with FWW? Chair-bed: CGA with FWW Provided skilled cues and instruction on performance and technique throughout. Gait Training 10542: Direct one-on-one instruction and skilled instruction in: Employing an assistive device Modified weight-bearing status Movement sequencing Turning and movement with proper form Provided verbal cues for equipment management and technique Provided instruction in gait pattern Patient education regarding pacing and breathing techniques to maximize activity tolerance? GAIT? Assistive Device: ?? ? FWW? Weight bearing: FWB Assist: ? ?CGA ? Distance:?? ?30'x2 with turns ? Deviation: ? Slow melva, low step height, short step length, knee instability BLE and Wide FATIMAH? ASSESSMENT:?Pt able to sit on the EOB unsupported before doing gait training, pt reported no dizziness although he did express odd feeling when a light flashed in his room [ reflection from outside]. He stated the sensation came on immediately with the flashing light then subsided as the light stopped. PLAN: Continue with balance training, global strengthening and general conditioning for improved safety, mobility and activity tolerance until pt is ready for DC. TREATMENT CODE/TIME: [id number], 54095 x 1 unit 23mins/ [id number] Gabriela Nowak PT
[2024-03-22 09:51] LABS: Fluid Type Peritoneal; Lactate Dehydrogenase (LD), BF 66 U/L
--- NOTE | 2024-03-22 12:41 | DSE_ITS ---
Date of service: 03/22/24 Time of Service: 12:41 DS: Diagnosis Discharge Diagnosis (1) Depressive disorder: Status: Chronic (2) (HFpEF) heart failure with preserved ejection fraction: Status: Acute (3) DM II (diabetes mellitus, type II), controlled: Status: Acute (4) Cirrhosis of liver: Status: Acute (5) Abdominal ascites: Status: Acute (6) Anemia: Status: Chronic Discharge Plan Disposition Patient Disposition: Shelter Facility(SNF) Condition: Stable Discharge Details Reason For Visit: AURELIA on CKD, ascites, liver cirrhosis, SOB, hypoxia Admit Date/Time: 03/18/24 14:30 Admit Provider: Shoaib Perez Attending Provider: Shoaib Perez Primary Care Provider: Darcie Mckeon Hospital Course Hospital Course: This is a 64-year-old gentleman with a known history of Chatman disease and subsequent hepatic failure. Patient presented to the ED for significant ascites and while he was down there he had a therapeutic and prognostic paracentesis. At that time had 4 L drained from his abdomen but had a drop in his blood pressure so this procedure was terminated. While he is here he was seen in consultation with general surgery and had another paracentesis done which donovan off 7 L of fluid. While he was here he was also noted to have significant anemia and was transfused a total of 3 units. The patient was noted to have melanotic stools open you did have an outpatient evaluation at the discretion of his PCP. While he was in inpatient was also seen by palliative care and stated that he did not want to pursue liver transplantation. His MELD score was 26 and his child-Zheng score was 11 class C. On the patient seen medically stable with improvement in his symptomology and was discharged home. I did ask him a colonoscopy was available for review willing to do the procedure he said he would not. While he was here due to his transaminitis I ordered a hepatitis panel which was negative. The patient also had an elevated lipase but was asymptomatic so this was not pursued as it was stable. While the patient was here an echocardiogram was performed and read showed an ejection fraction of 60% with mild aortic stenosis needle was also performed on his right knee which was unremarkable Home Meds and New Rx's Prescriptions: New tamsulosin 0.4 mg Capsule 0.8 mg PO DAILY Qty: 30 0RF midodrine 2.5 mg Tablet 2.5 mg PO TID Qty: 90 0RF Continued acetaminophen 325 mg capsule 650 mg PO Q8H PRN PRN aspirin [Adult Low Dose Aspirin] 81 mg tablet,delayed release (DR/EC) 81 mg PO DAILY lactulose [Enulose] 10 gram/15 mL solution 10 g PO BID glucagon HCl [Glucagon (HCl) Emergency Kit] 1 mg recon soln 1 mg IM ONCE PRN Rx Instructions: give if glucose under 70 melatonin 3 mg capsule 3 mg PO QHS ondansetron HCl 4 mg tablet 4 mg PO QD-BID PRN pantoprazole [Protonix] 40 mg tablet,delayed release (DR/EC) 40 mg PO BID albuterol sulfate [Ventolin HFA] 90 mcg/actuation HFA aerosol inhaler 2 inh inhalation Q4H PRN rifaximin 550 mg tablet 550 mg PO BID rosuvastatin 40 mg tablet 40 mg PO DAILY spironolactone [Aldactone] 50 mg tablet 50 mg PO DAILY torsemide 20 mg tablet 20 mg PO DAILY bupropion HCl 150 mg tablet extended release 24 hr 150 mg PO DAILY Patient Comments: TAKE 1 TABLET BY MOUTH ONCE DAILY paroxetine HCl 40 MG tablet 40 mg PO DAILY No Action propranolol 60 mg capsule,extended release 24 hr 60 mg PO DAILY Discharge Instructions Stand Alone Forms: Nursing Discharge Form Referrals: Darcie Mckeon [Primary Care Provider] - (3-5 days) Shoaib Perez MD [ [facility] STAFF PHYSICIAN] - Activity:: Activity as Tolerated Equipment/Supplies:: No Equipment Needed Diet:: As Tolerated Discharge Orders Discharge Orders: Discharge Order (Routine); Ordered 03/22/24 Ordered By: Shoaib Perez DS: Summary Time Spent with Patient providing and/or coordinating discharge services: Greater than 30 minutes Status at Discharge Functional status at discharge: independent ambulation Overall status at discharge: patient is back to baseline Mental Status: mental status grossly normal Speech and Movement: speech and movement normal Mood: congruent mood Affect: normal affect Quality:SDOH Health Related Social Needs: No Data to Display Exam Narrative Exam Narrative: General: Nontoxic, comfortable, overall somewhat weak and frail in appearance. He is interactive. Neuro: Alert and oriented x3 Psych: Good mood and affect. Seemingly good insight and understanding into condition. Chest: Non-labored breathing, no wheezing, no visible shortness of breath. Heart: Regular Abdomen: Soft, mild?moderate distention, not tense, no tenderness. Soft, reducible umbilical hernia. Clean, dry and intact dressing in place from prior paracentesis site. skin: multiple rashes and ecchymotic regions BLEE 2 plus Psych Mental Status: mental status grossly normal Speech and Movement: speech and movement normal Mood: congruent mood Affect: normal affect DS: Data Vitals/I&O Vitals and I&O: Vital Signs Temperature 36.5 C 03/22/24 08:36 Temperature Source Temporal Artery Scan 03/22/24 08:36 Pulse 89 03/22/24 08:36 Pulse 81 03/18/24 15:20 Respiratory Rate 17 03/22/24 08:36 Respiratory Effort Normal 03/18/24 16:16 Respiratory Depth Normal 03/18/24 16:16 Respiratory Pattern Normal 03/18/24 16:16 Blood Pressure 96/58 L 03/22/24 08:36 Blood Pressure Mean 81 03/18/24 15:00 Blood Pressure Position Sitting 03/18/24 08:53 Pulse Oximetry 99 03/22/24 08:36 Oxygen Delivery Method Room Air 03/22/24 08:36 Oxygen Flow Rate 0 03/22/24 08:36 Pain Level 4 03/22/24 08:36 Comment RN informed of BP- in room at time; 03/22/24 08:36 Intake & Output 03/21/24 03/22/24 03/22/24 23:59 11:59 23:59 Intake Total 1291 / 1941 250 / 250 Output Total 300 / 300 Balance 991 / 1641 250 / 250 Intake: Oral 657 / 1207 250 / 250 Blood Product 599 / 599 Rbc Leuko Reduced Unit 599 / 599 [id number] Other 35 / 35 Rbc Leuko Reduced Unit 35 / 35 [id number] Output: Urine 300 / 300 Other: Urine Color Yellow Yellow Urine Appearance Clear Clear Urine Odor Normal Strong Comment incontinent x1 Stool Size Smear Moderate Stool Characteristics Soft Formed Brown Data Completed and Pending Labs on day of discharge: Labs from last 24 hours 03/22/24 03/20/24 03/19/24 05:50 06:20 15:01 WBC 8.63 RBC 3.09 L Hgb 8.9 L D Hct 25.6 L MCV 83 MCH 28.8 MCHC 34.8 RDW 18.9 H Plt Count 59 L MPV 11.4 H PT 12.6 H INR 1.3 H Sodium 139 Potassium 4.4 Chloride 106 Carbon Dioxide 16.7 L Anion Gap 16.3 H BUN 101 H* Creatinine 4.4 H* Est GFR (CKD-EPI 2020) 14.20 Glucose 80 Calcium 8.1 L Phosphorus 5.8 H Total Bilirubin 1.57 H AST 138 H ALT 122 H Alkaline Phosphatase 212 H Total Protein 5.6 L Albumin 2.4 L Fluid Type Fluid LDH Hepatitis A IgM Ab Negative Hep Bs Antigen Negative Hep Bs Antibody Negative Hep Bs Antibody, Quant 4.0 Hep B Core Total Ab Negative Hepatitis C Antibody Negative ABO/Rh A Negative Antibody Screen NEGATIVE Crossmatch See Detail 03/18/24 13:25 WBC RBC Hgb Hct MCV MCH MCHC RDW Plt Count MPV PT INR Sodium Potassium Chloride Carbon Dioxide Anion Gap BUN Creatinine Est GFR (CKD-EPI 2020) Glucose Calcium Phosphorus Total Bilirubin AST ALT Alkaline Phosphatase Total Protein Albumin Fluid Type Peritoneal Fluid LDH 66 Hepatitis A IgM Ab Hep Bs Antigen Hep Bs Antibody Hep Bs Antibody, Quant Hep B Core Total Ab Hepatitis C Antibody ABO/Rh Antibody Screen Crossmatch PFSH All Active Problems (Updated 03/18/24 @ 17:53 by Trinh Copeland APRN) CAD (coronary artery disease) (Chronic) Transaminitis (Acute) Hyperlipidemia (Acute) Essential hypertension (Acute) Cirrhosis of liver (Acute) Depressive disorder (Chronic) (HFpEF) heart failure with preserved ejection fraction (Acute) DM II (diabetes mellitus, type II), controlled (Acute) Hypoxia (Acute) Anemia (Chronic) Abdominal ascites (Acute) AURELIA (acute kidney injury) (Acute) Surgical History (Updated 03/22/24 @ 10:41 by Gabriela Velez) History of abdominal paracentesis (~03/2024) Social History Smoking/Tobacco Use Status: Never Smoking risk assessment performed?: Yes Alcohol Intake: former Drug use: Never Substance use type: does not use Housing: assisted living facility Do you feel safe in your relationship?: Yes Time Spent with Patient Time Spent with Patient: 45-69 minutes Time was spent: preparing to see the patient(eg.review tests), obtaining and/or reviewing separately otained hiistory, ordering medications,tests, procedures, referring, communicating with other health long term care pharmacist, indepentently interpreting results, counseling the patient and care coordination
[2024-03-22 13:23] VITALS: BP 99/67; PULSE 90
--- NOTE | 2024-03-22 14:15 | NUR.NOTE ---
Nursing Note: This RN admitted pt to floor: pt had no personal belongings at the time of admission, including shoes, radha, wallet.
--- NOTE | 2024-03-22 16:45 | PDOC.CMDIS ---
Date of service: 03/22/24 Time of Service: 14:00 LACE Index Scoring Tool Questions: Length of Stay (in days): 4 - 6 Was the patient admitted via the E.D.?: Yes Comorbidities: Previous M.I. and Liver or Renal Disease E.D. Visits: 1 Answers: Total Score: 13 Risk of Readmission: High Risk Care Management Discharge Plan Reason for Hospitalization: AURELIA on CKD, ascites Discharge Plan: Hiar was transferred back to [facility] today via [facility] private ride. He will f/u with the facility provider and continue his plan of care. Hair expressed his distress over returning to [facility] and was encouraged to speak with the SW at the facility. Patient/Family Education Needs: Review of discharge instructions, activity, limitations, and f/u plan. [facility] Health Related Social Needs: No Data to Display
== END 2024-03-22 14:07 | disposition skilled nursing facility (03) | DRG 433 ==
LOC: ER 15:31 → MS 15:52
PROVIDERS: Family Medicine; Nurse Practitioner Acute Care; Student in an Organized Health Care Education/Training Program; Admitting Provider Hospitalist; Emergency Provider Student in an Organized Health Care Education/Training Program; PCP Internal Medicine; Visit Provider Hospitalist
PROC: 0W9G3ZZ Drainage of Peritoneal Cavity, Percutaneous Approach (ICD-10-PCS; CPT 49082; principal; 2024-03-21 14:00)
DX: I13.0 Hypertensive heart and chronic kidney disease with heart failure and stage 1 through stage 4 chronic kidney disease, or unspecified chronic kidney disease (principal); I50.30 Unspecified diastolic (congestive) heart failure; R18.8 Other ascites; N17.9 Acute kidney failure, unspecified; K74.69 Other cirrhosis of liver; K92.1 Melena; R74.01 Elevation of levels of liver transaminase levels; F32.A Depression, unspecified; R09.02 Hypoxemia; D64.9 Anemia, unspecified; I25.10 Atherosclerotic heart disease of native coronary artery without angina pectoris; K75.81 Nonalcoholic steatohepatitis (NASH); E78.00 Pure hypercholesterolemia, unspecified; E11.22 Type 2 diabetes mellitus with diabetic chronic kidney disease; I25.2 Old myocardial infarction; G40.909 Epilepsy, unspecified, not intractable, without status epilepticus; T47.3X6A Underdosing of saline and osmotic laxatives, initial encounter; Z91.128 Patient's intentional underdosing of medication regimen for other reason; Z66 Do not resuscitate; I35.0 Nonrheumatic aortic (valve) stenosis; M25.561 Pain in right knee
CPT/HCPCS: 49082; 00123; 36415; 36430; 49083; 80053; 82042; 83690; 85027; 86704; 86706; 86709; 86803; 86850; 86900; 86901; 86920; 87340; 90656; 93005; 93306; 97116; 97162; 97530; 99223; 99232; 99285; 73564; 81373; 82140; 82150; 82270; 83036; 83615; 83735; 84100; 84157; 85025; 85610; 87070; 87205; 89051; 93010; 94760; 99231; 99233; 99239; J1650; J1815; J2270; P9016; P9047

== ENCOUNTER 2024-03-30 17:02 | Outpatient (REF) | payer MEDICARE, MEDICAID, SELFPAY ==
[2024-03-30 16:50] LABS: HCT 22.5 % (40.0-50.0); HGB 7.5 g/dL (13.5-17.5); MCH 29.1 pg (27.0-33.0); MCHC 33.3 % (32.0-36.0); MCV 87 fL (80-95); Platelet Count 139 10^3/uL (130-400); RBC 2.58 10^6/uL (4.36-5.78); RDW 20.8 % (11.8-14.1); RDW-SD 66.1 fL
[2024-03-30 17:18] LABS: Anion Gap 15.2 mmol/L (3-11); CO2 15.8 mmol/L (21.0-32.0); Calcium 7.9 mg/dL (8.5-10.1); Chloride 99 mmol/L (98-107); Estimated GFR 13.12 (mL/min/1.73m2); Glucose 163 mg/dL (74-106); Sodium 130 mmol/L (136-145)
[2024-03-30 17:37] LABS: BUN 128 mg/dL (7-18); CREATININE 4.7 mg/dL (0.70-1.30)
[2024-03-30 17:56] LABS: Absolute Lymphocyte Count 0.21 10^3/uL (1.2-3.4); Absolute Monocyte Count 1.45 10^3/uL (0.1-0.8); Absolute Neutrophil Count 19.04 10^3/uL (1.2-6.7); Bands % 1 %
[2024-03-30 17:57] LABS: Anisocytosis 1+; Diff Comment Manual Differential
== END 2024-03-30 17:03 | disposition home or self-care (01) ==
LOC: LBN 17:02
PROVIDERS: PCP Internal Medicine; Visit Provider Family Medicine
DX: M62.81 Muscle weakness (generalized) (principal)
CPT/HCPCS: 80048; 83735; 85025